=== PATIENT | male | born 1945 | race Caucasian/White ===

== ENCOUNTER → 2017-09-21 10:28 | Outpatient (CLI) | payer MEDICARE, SELFPAY ==
--- NOTE | 2017-09-21 10:47 | MR_ITS ---
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 FINDINGS: There is an area of abnormal signal intensity within the left frontal parietal junction which measures 4 cm transverse, 3.5 cm AP, and 4 cm cephalad to caudad. This is near CSF signal intensity hypointense on T1 and hyperintense on T2 with decreased FLAIR signal. This is likely related to an area of chronic infarction with developing septal malacia. There is some preservation however of the ribbon of cortex. This is without mass effect. There is some increased T2 signal within the white matter adjacent to this area suggesting some residual edema from the previous stroke. This is somewhat unusual in that the surrounding brain is not yet atrophic but may be related to the date of the infarction. Continued follow-up is recommended. This area does not demonstrate any significant enhancement. There may be some minimal cortical enhancement. No midline shift or mass effect evident. This is hypointense on diffusion and hyperintense on ADC images. Cerebellopontine angles, cerebellum, and brainstem are unremarkable. There is a partial empty sella. A small cystic area is present posterior to the pituitary and could represent a small pituitary cyst or sequela from the partial at the sella measuring 4 mm. There is generalized atrophy with scattered periventricular and subcortical T2 white matter hyperintensities consistent with ischemic gliotic change from microvascular disease. No enhancing lesions evident. No mass effect. No evidence of acute hemorrhage. IMPRESSION: 1. Abnormal signal intensity in the left frontal parietal area consistent with resolving infarction. Due to some atypical features, would recommend follow-up exam in 4-6 weeks to confirm further resolution with encephalomalacic changes. 2. 4 mm cystic area posterior aspect of the pituitary and may represent a small pituitary cyst. 3. Atrophy with chronic periventricular ischemic gliotic change
[2017-09-21 10:49] LABS: Blood Urea Nitrogen 12 mg/dL (7-18); Creatinine,Serum 1.07 mg/dL (0.70-1.30); Estimated Glomerular Filt Rate 68 ml/min (>60); GFR (African American) 83 ML/MIN (>60)
== END ==
PROVIDERS: Family Provider Family Medicine; PCP Family Medicine; Visit Provider Family Medicine
DX: I63.232 Cerebral infarction due to unspecified occlusion or stenosis of left carotid arteries (principal); I10 Essential (primary) hypertension; R47.01 Aphasia
CPT/HCPCS: 36415; 70553; 82565; 84520; A9576

== ENCOUNTER → 2018-04-26 10:32 | Outpatient (CLI) | payer MEDICARE, SELFPAY ==
--- NOTE | 2018-04-26 10:39 | XR_ITS ---
XR hip LT 2-3V w/pelvis HISTORY: Left hip pain ITS.REASON: LEFT HIP PAIN,OSTEOARTHRITIS ORDERING PHYSICIAN: Rodrigo Flores MD PATIENT AGE: 72 years COMPARISON: 04/25/2018 FINDINGS: There are moderate to severe osteoarthritic changes of the left hip with decrease in the hip joint space and osteosclerosis of the acetabulum with hypertrophic changes of the acetabulum. No fracture or dislocation. Bony spurring also present at the femoral head. Osteoarthritic changes are also present involving the right hip which are mild to moderate and degenerative changes are present in the lower lumbar spine. IMPRESSION: Moderate to severe osteoarthritis of left hip which has progressed compared to 09/30/2014
== END ==
PROVIDERS: PCP Family Medicine; Visit Provider Family Medicine
DX: M25.552 Pain in left hip (principal); M16.12 Unilateral primary osteoarthritis, left hip
CPT/HCPCS: 73502

== ENCOUNTER → 2018-05-21 12:49 | Outpatient (CLI) | payer MEDICARE, SELFPAY ==
--- NOTE | 2018-05-21 12:51 | IR_ITS ---
IR fluoro guided needle place CLINICAL INDICATION: ITS.REASON: Lt hip pain ORDERING PHYSICIAN: Pallavi Romero MD PATIENT AGE: 72 years Comparison: None Fluoroscopy time: 10 seconds Hip injection was performed by Dr. Romero. FINDINGS: 2 images submitted one of which shows a needle in place and the other without the needle. There is both intra and extra-articular contrast. Intra-articular contrast has a somewhat shaggy appearance. Please correlate with fluoroscopic findings. IMPRESSION: Status post left hip injection by Dr. Romero as described above
--- NOTE | 2018-05-23 20:12 | HMH.PROC ---
[facility] Procedure Note Procedure Note:: Date of Procedure: 05/21/2018 Pre-procedure diagnosis: L hip degenerative joint disease Post-procedure diagnosis: L hip degenerative joint disease Procedure: intraarticular corticosteroid injection L hip Performed by: Pallavi Romero MD Anesthesia: local; 10cc 1% lidocaine w/o epinephrine Estimated Blood Loss: none History of Present Illness: The patient is a 72 year-old male with degenerative joint disease of the L hip. He has never injured this hip nor had surgery in that location. He has tried oral analgesics and ice, but his pain is increasing in both frequency and severity. He uses a rolling walker at baseline, which is partially due to his hip, but also due to his history of prior AK/CVA (both occurred simultaneously 1.5 years ago). He has never had an injection in the hip, and would like to try this before considering surgical options. I discussed the procedure as well as the risks, including bleeding, neurovascular damage, infection, and the failure of the injection to improve his pain. The patient vocalized understanding and provided informed consent. Procedure Note: The patient presented to the radiology department and changed into a gown. Consent was reviewed and signed by both myself and the patient, all questions were answered. The patient was placed supine on the fluoroscopy table and the L hip exposed. The anterior groin/hip and proximal thigh were prepped with chlorhexidine. Timeout was performed. Next, the fluoro machine was brought in over the patient?s L hip and a picture taken to confirm adequate visualization of the joint. I donned a pair of sterile surgical gloves; the remainder of the procedure was performed in a sterile fashion. A 20G spinal needle was held over the hip to approximate my desired entry point on the skin. Once this was established, a 25G needle was used to infiltrate injection site and estimated needle track with 10cc 1% lidocaine w/o epinephrine. Once the injection site was anesthetized, the spinal needle was advanced through the same puncture site and deeper towards the hip joint. Using fluoro, it was confirmed that the needle was advanced until it was at the level of the femoral neck. The stylus was removed from the spinal needle and 2cc of iodinated contrast solution was injected through the spinal needle. Fluoro was taken again, and the dye confirmed intra-capsular placement of the spinal needle, indicating a successful intraarticular injection. The syringe with contrast was removed, keeping the spinal needle in place, and 40mg Kenalog with 2cc 1% lidocaine w/o epinephrine was injected through the needle into the hip joint. A final fluoro picture was taken, confirming successful intraarticular injection. The spinal needle was removed from the hip and a band-aid was placed over the injection site. Specimens: none Condition/Disposition: good / home Complications: none
--- NOTE | 2018-05-23 20:23 | P.PCN_ITS ---
[facility] Procedure Note Procedure Note:: Date of Procedure: 05/21/2018 Pre-procedure diagnosis: L hip degenerative joint disease Post-procedure diagnosis: L hip degenerative joint disease Procedure: intraarticular corticosteroid injection L hip Performed by: Pallavi Romero MD Anesthesia: local; 10cc 1% lidocaine w/o epinephrine Estimated Blood Loss: none History of Present Illness: The patient is a 72 year-old male with degenerative joint disease of the L hip. He has never injured this hip nor had surgery in that location. He has tried oral analgesics and ice, but his pain is increasing in both frequency and severity. He uses a rolling walker at baseline, which is partially due to his hip, but also due to his history of prior VT/CVA (both occurred simultaneously 1.5 years ago). He has never had an injection in the hip, and would like to try this before considering surgical options. I discussed the procedure as well as the risks, including bleeding, neurovascular damage, infection, and the failure of the injection to improve his pain. The patient vocalized understanding and provided informed consent. Procedure Note: The patient presented to the radiology department and changed into a gown. Consent was reviewed and signed by both myself and the patient, all questions w ere answered. The patient was placed supine on the fluoroscopy table and the L hip exposed. The anterior groin/hip and proximal thigh were prepped with chlorhexidine. Timeout was performed. Next, the fluoro machine was brought in over the patient?s L hip and a picture taken to confirm adequate visualization of the joint. I donned a pair of sterile surgical gloves; the remainder of the procedure was performed in a sterile fashion. A 20G spinal needle was held over the hip to approximate my desired entry point on the skin. Once this was established, a 25G needle was used to infiltrate injection site and estimated needle track with 10cc 1% lidocaine w/o epinephrine. Once the injection site was anesthetized, the spinal needle was advanced through the same puncture site and deeper towards the hip joint. Using fluoro, it was confirmed that the needle was advanced until it was at the level of the femoral neck. The stylus was removed from the spinal needle and 2cc of iodinated contrast solution was injected through the spinal needle. Fluoro was taken again, and the dye confirmed intra- capsular placement of the spinal needle, indicating a successful intraarticular injection. The syringe with contrast was removed, keeping the spinal needle in place, and 40mg Kenalog with 2cc 1% lidocaine w/o epinephrine was injected through the needle into the hip joint. A final fluoro picture was taken, confirming successful intraarticular injection. The spinal needle was removed from the hip and a band-aid was placed over the injection site. Specimens: none Condition/Disposition: good / home Complications: none
== END ==
PROVIDERS: PCP Family Medicine; Visit Provider Orthopaedic Surgery
DX: M16.12 Unilateral primary osteoarthritis, left hip (principal)
CPT/HCPCS: 20610; 77002; Q9967

== ENCOUNTER → 2019-01-10 07:52 | Outpatient (CLI) | payer MEDICARE, SELFPAY ==
--- NOTE | 2019-01-10 | CA_ITS ---
APPROVED REPORT Exam: Pharmacologic Technologist: cathy franco, Ht: 6 ft 2 in Wt: 268 lbs BSA: 2.46 m2 Indications: Pre-OP Medical History Medical History: HTN Medications: Metoprolol,,,,, Asa,,,,, Gabapentin,,,,, Losartan,,,,, Atorvastatin,,,,, CloPIdogrel,,,,, OmPERAZOLE,,,,, Allergies: codeine Cardiac Risk Factors: HTN Stress Test Details Test: LEXISCAN HR Resting HR: 57 bpm Max Heart Rate (APMHR): 149 bpm Max HR Achieved: 72 bpm Target HR (85% APMHR): 126 bpm % of APMHR: 48 Recovery HR: 62 bpm BP Resting BP: 162.0/78.0 mmHg Max BP: 164.0/78.0 mmHg Recovery BP: 164.0/78.0 mmHg ECG Resting EC DEGREE AVB,OLD SEPTAL SD Clinical Exercise duration: 04:02 min Highest Stage Achieved: Exercise capacity: 1.0 METs Stress ECG Conclusion DEVELOPED LIGHTHEADEDNESS AND CHEST PRESSURE ABOUT 5 MINUTES INTO RECOVERY. SYMPTOMS RESOLVED AFTER AMINOPHYLLINE 100 MG SLOW IV GIVEN ABOUT 10 MINUTES INTO RECOVERY. SOA AND MALAISE. CHEST DISCOMFORT AFTER TEST. NO ARRHYTHMIAS/ECTOPY. NO SIGNIFICANT ST-T CHANGES. UNREMARKABLE LEXISCAN STRESS. MYOVIEW IMAGES REPORTED SEPARATELY Test Summary REST 09:10 . . 57 . 162/ 78 . . Stage 1 01:00 . . 71 . . . . Stage 2 01:00 . . 69 . 136/ 76 . . Stage 3 01:00 . . 62 . 139/ 76 . . Stage 4 01:00 . . 62 . 157/ 77 . . Stage 4 01:02 . . 62 . 157/ 77 . Stop exercise at 04:02 RECOVERY 01:00 . . 61 . . . . RECOVERY 02:00 . . 62 . 164/ 78 . . RECOVERY 03:00 . . 61 . 164/ 78 . . RECOVERY 03:33 . . 59 . 145/ 79 . . Electronically signed by : Andre Dan, 01/10/2019 17:03:06
--- NOTE | 2019-01-10 07:54 | CA_ITS ---
APPROVED REPORT EXAM: Comprehensive 2D, Doppler, and color-flow Echocardiogram Loom Starter: Ana Schmitz RT(R) Ht: 6 ft 2 in Wt: 269lbs BSA: 2.47 BP: 138/65 mmHg Indications: Pre-Op Clearance, Shortness of Breath, CVA/TIA, Fatigue, CAD, Hyperlipidemia, Hypertension/HDD, history of [place], GERD Echo Enhancing Agent Indication: Endocardial border delineation Agent(s) / Amount(s) Used: Definity 1 cc 2D Dimensions IVSd 0.70 cm M: 0.6-1.2 LVEF (Visual) 38.70 % LVDd 4.30 cm M: 4.2 - 5.9 LVDs 3.50 cm M: 2.5 - 4.0 LVOT 2.00 cm (M/F) 1.5-2.5 M-Mode Dimensions LA Diam 3.60 cm (1.9-4.0) Ao Diam 3.50 cm (2.0-3.7) AV Cusp 2.90 cm (1.5-2.6) LV Diastology E/A Ratio 0.5 MED E' 3.31 (< 7 cm/sec) E'/MED E' Ratio 15.10 (>14) LAT E' 6.92 (<10 cm/sec) E/LAT E' Ratio 7.20 (>14) Mitral Valve MV E Max Jeffry. 49.90 (40-130 cm/s) MV A Velocity 92.80 (40-130 cm/s) E/A Ratio 0.50 Left Ventricle Left atrium is mildly enlarged, left ventricle is normal size, mild concentric left ventricular hypertrophy, visually estimated ejection fraction of 40%, with marked hypokinesis involving the distal septum and apical and anterior apical wall. There is no left ventricular thrombus seen, definitely contrast was utilized to delineate the endocardial surfaces. Grade 1 diastolic dysfunction seen with tissue Doppler evidence of raise left atrial pressure. Right Ventricle Right atrium and right ventricular normal size and contractility. Aortic Valve Aortic valve is minimally thickened and fibrosed, there is no aortic stenosis, or aortic insufficiency. Mitral Valve Mitral valve is grossly normal, there is mild mitral regurgitation. Tricuspid Valve Tricuspid valve is grossly normal, there is mild tricuspid regurgitation. Tricuspid regurgitation jet velocity is inadequate for calculation of the right ventricular systolic pressure. Pulmonic Valve Pulmonic valve is poorly visualized. Great Vessels Aortic root is normal size. Pericardium No significant pericardial effusion noted. Conclusion 1. Technically difficult study because of the patient's factor and poor acoustic windows. 2. Mildly enlarged left atrium, normal left ventricular size, mild concentric left ventricular hypertrophy, visually estimated ejection fraction 40% with multiple segmental wall motion abnormality described above, there is no left ventricular thrombus seen, grade 1 diastolic dysfunction seen with tissue Doppler evidence of raise left atrial pressure. Definitely contrast was utilized to delineate the endocardial surfaces. 3. Mild mitral and tricuspid regurgitation 4. No significant pericardial effusion noted. Electronically signed by : Andre Dan, 01/11/2019 15:46:00
--- NOTE | 2019-01-10 07:55 | CA_ITS ---
APPROVED REPORT Student Admissions Clerk: JAKE Laterality: Bilateral Indications: preop/hx of stroke BLANCA Doppler Spectral Velocity Analysis ECA (R) 92.70/ cm/s ECA (L) 83.30/ cm/s dICA (R) 50.70/16.40 cm/s dICA (L) 65.20/18.90 cm/s Aminta (R) 66.80/19.60 cm/s Aminta (L) 48.70/13.40 cm/s pICA (R) 50.30/18.90 cm/s pICA (L) 38.50/14.10 cm/s dCCA (R) 65.20/14.10 cm/s dCCA (L) 68.80/12.80 cm/s pCCA (R) 61.30/15.70 cm/s pCCA (L) 61.90/11.80 cm/s Vert (R) 40.90/ cm/s Vert (L) 94.30/ cm/s ICA/CCA 1.02 ICA/CCA 0.95 Conclusion Duplex evaluation demonstrates stenosis of the right proximal internal carotid artery in the range of 20-49% with PSV <140 cm/sec, EDV <100 cm/sec, and IC/CC Ratio <4.0.Duplex evaluation demonstrates stenosis of the left proximal internal carotid artery <20% with PSV <140 cm/sec, EDV <100 cm/sec, and IC/CC Ratio <4.0.Antegrade flow seen bilateral vertebral arteries. Electronically signed by : Alden Petty MD 01/10/2019 16:43:04
--- NOTE | 2019-01-10 14:14 | NM_ITS ---
APPROVED REPORT Exam: Nuclear Stress Test Indication: SOB, Pre-op, HTN, CAD, Hx of SC Patient Location: Outpatient Stress Tech: Clare Gutierrez [place] Tech:Candelaria Morris ALYSSATejas RT(R)(N) Ht: 6 ft 2 in Wt: 268 lbs BSA: 2.46 m2 HR: 58 bpm BP: 162/78 mmHg BMI: 34.4 History: SOB, Pre-op, HTN, CAD, Hx of SC Procedure: Patient received a 0.4 mg of intravenous Lexiscan, resting heart rate 58 bpm, resting blood pressure 162/78 mmHg, with Lexiscan maximum heart rate achived was 70 bpm which is Less than 85 % of the maximum predicted heart rate and blood pressure was 136/76 mmHg. With Lexiscan patient complained of chest pressure Electrocardiogram Resting electro cardiogram showed sinus rhythm, with Lexiscan there is less than 1.[address] segment depression noted from the baseline EKG. The EKG portion of the Lexiscan Myoview is nondiagnostic. Cardiac Stress and Resting SPECT Images: Cardiac Stress and Resting SPECT images were obtained using technetium 99m Myoview 32.8 mCi stress and 10.46 mCi at rest. Gated SPECT with analysis of segmental wall motion and calculation of ejection fraction also done cardiac stress and resting SPECT images show a fixed defect involving the anterior anterior apical, apex and anteroseptal wall and a fixed pattern suggestive of myocardial scarring with minimal yrn-infarct ischemia. Computer derived ejection fraction is 49% with marked hypokinesis involving the anterior, apex and anteroseptal wall. The right ventricle is normal size and contractility. Conclusion: 1. The EKG portion of the Lexiscan Myoview is nondiagnostic. 2. Scintigraphic evidence of myocardial scarring involving the anterior, anterior apical, apex and anteroseptal wall without significant yrn-infarct ischemia. Computer derived ejection fraction is 49% with segmental wall motion abnormality described above, right ventricle is normal size and contractility. 3. Abnormal Lexiscan Myoview study. Electronically signed by : Andre Dan, 01/10/2019 16:06:23
== END ==
PROVIDERS: PCP Family Medicine; Visit Provider Internal Medicine Cardiovascular Disease
DX: E78.5 Hyperlipidemia, unspecified (principal); I10 Essential (primary) hypertension; I25.10 Atherosclerotic heart disease of native coronary artery without angina pectoris; I25.2 Old myocardial infarction; I69.320 Aphasia following cerebral infarction; K21.9 Gastro-esophageal reflux disease without esophagitis; R06.00 Dyspnea, unspecified; Z01.810 Encounter for preprocedural cardiovascular examination; Z95.5 Presence of coronary angioplasty implant and graft; I65.23 Occlusion and stenosis of bilateral carotid arteries
CPT/HCPCS: 78452; 93017; 93306; 93880; A9502; J2785; Q9957

== ENCOUNTER 2019-02-05 12:44 | Outpatient (RCR) | payer MEDICARE, SELFPAY | END 2019-02-05 12:50 | disposition home or self-care (01) | LOC: PT 12:44 | PROVIDERS: Visit Provider Internal Medicine | DX: Z95.5 Presence of coronary angioplasty implant and graft (principal) | CPT/HCPCS: 93798 ==

== ENCOUNTER → 2019-02-25 12:54 | Outpatient (CLI) | payer MEDICARE, SELFPAY ==
--- NOTE | 2019-02-25 12:57 | IR_ITS ---
PROCEDURE: IR FLUORO GUIDED NEEDLE PLACE CLINICAL INDICATION: left hip injection COMPARISON: HIPCMLT XR hip LT 2-3V w/pelvis from 04/26/2018 FINDINGS: Two images submitted with the C-arm shows needle in place at the mid femoral neck region with contrast injected into the soft tissues. There also appears to be some contrast in the hip joint medially. Exam is performed by Dr. Romero. Please see her op notes for further description IMPRESSION: Status post left hip injection Dictated by: Alden Petty MD 02/25/2019 17:37 Electronically signed by Alden Petty MD in [place] 02/25/2019 17:37
--- NOTE | 2019-02-25 22:08 | HMH.PROC ---
[facility] Procedure Note Procedure Note:: Date of Procedure: 02/25/2019 Pre-procedure diagnosis: L hip DJD Post-procedure diagnosis: L hip DJD Procedure: intraarticular corticosteroid injection L hip Performed by: Pallavi Romero MD Analysis Consultant/s: none Anesthesia: local; 3cc 1% lidocaine w/o epinephrine Estimated Blood Loss: none Procedure Note: The patient presented to the radiology department and changed into a gown, exposing the L hip. Consent was reviewed and signed by both myself and the patient, all questions were answered. The patient was placed supine on the fluoroscopy table and the L hip exposed. The anterior groin/hip and proximal thigh were prepped with chlorhexidine. Timeout was performed. Next, the fluoro machine was brought in over the patient?s hip and a picture taken to confirm adequate visualization of the joint. I donned a pair of sterile surgical gloves; the remainder of the procedure was performed in a sterile fashion. A 20G spinal needle was held over the hip to approximate my desired entry point on the skin. Once this was established, a 25G needle was used to infiltrate injection site and estimated needle track with 3cc 1% lidocaine w/o epinephrine. Once the injection site was anesthetized, the spinal needle was advanced through the same puncture site and deeper towards the hip joint. Using fluoro, it was confirmed that the needle was advanced until it was at the level of the femoral neck. The stylus was removed from the spinal needle and 2cc of iodinated contrast solution was injected through the spinal needle. Fluoro was taken again, and the dye confirmed intra-capsular placement of the spinal needle, indicating a successful intraarticular injection. The syringe with contrast was removed, keeping the spinal needle in place, and 40mg Kenalog with 2cc 1% lidocaine w/o epinephrine was injected through the needle into the hip joint. A final fluoro picture was taken, confirming successful intraarticular injection. The spinal needle was removed from the hip and a band-aid was placed over the injection site. Specimens: none Condition/Disposition: good / home Complications: none
== END ==
PROVIDERS: PCP Family Medicine; Visit Provider Orthopaedic Surgery
DX: M16.12 Unilateral primary osteoarthritis, left hip (principal)
CPT/HCPCS: 20610; 77002; Q9967

== ENCOUNTER → 2019-03-25 14:19 | Outpatient (CLI) | payer MEDICARE, SELFPAY ==
[2019-03-25 15:48] LABS: Alanine Aminotransferase 26 U/L (12-78); Albumin Level 3.4 gm/dL (3.4-5.0); Alkaline Phosphatase 107 U/L (46-116); Anion Gap 15.6 mEq/L (5-15); Aspartate Amino Transferase 15 U/L (15-37); Bilirubin,Direct 0.2 mg/dL (0.0-0.2); Bilirubin,Indirect 0.3 mg/dL (0.0-0.9); Bilirubin,Total 0.5 mg/dL (0.2-1.0); Blood Urea Nitrogen 16 mg/dL (7-18); Calcium 8.9 mg/dL (8.5-10.1); Carbon Dioxide 23 mmol/L (21.0-32.0); Chloride 103 mmol/L (98-107); Chol/HDL Ratio 1.9 (1-3.5); Cholesterol 93 mg/dL (140-200); Estimated Glomerular Filt Rate 60 ml/min (>60); GFR (African American) 72 ML/MIN (>60); Glucose 86 mg/dL (74-106); HDL Cholesterol 50 mg/dL (27-67); LDL Cholesterol 25 mg/dL (0-130); Potassium 4.6 mmoL/L (3.5-5.1); Sodium 137 mmol/L (136-145); Total Protein,Serum 6.9 gm/dL (6.4-8.2); Triglycerides 89 mg/dL (30-200); VLDL Cholesterol 18 mg/dL (0-40)
== END ==
PROVIDERS: PCP Family Medicine; Visit Provider Urology
DX: E78.2 Mixed hyperlipidemia (principal); I10 Essential (primary) hypertension; I25.10 Atherosclerotic heart disease of native coronary artery without angina pectoris; I25.2 Old myocardial infarction; I65.23 Occlusion and stenosis of bilateral carotid arteries; I69.320 Aphasia following cerebral infarction; K21.9 Gastro-esophageal reflux disease without esophagitis; R06.02 Shortness of breath; Z95.5 Presence of coronary angioplasty implant and graft
CPT/HCPCS: 36415; 80048; 80061; 80076

== ENCOUNTER 2020-09-15 16:12 | Emergency (ER) | payer MEDICARE, SELFPAY ==
--- NOTE | 2020-09-15 16:21 | XR_ITS ---
PROCEDURE INFORMATION: Exam: XR Right Knee Exam date and time: 09/15/2020 4:21 PM Age: 75 years old Clinical indication: Injury or trauma; Other: Ladle Pourer fell on knee; Blunt trauma; Right; Additional info: Dropped paint grinder on knee TECHNIQUE: Imaging protocol: XR Right knee. Views: 3 views. COMPARISON: No relevant prior studies available. FINDINGS: Bones/joints: There are mild degenerative changes of the knee joint, predominantly involving the medial joint compartment. There is no evidence of acute fracture. There is no evidence of joint malalignment or dislocation. Chondrocalcinosis is present. Soft tissues: Normal. IMPRESSION: 1. There are mild degenerative changes of the knee joint, predominantly involving the medial joint compartment. 2. No evidence of acute fracture. 3. No evidence of acute dislocation. 4. Chondrocalcinosis is present.
[2020-09-15 16:24] VITALS: BP 155/110; PULSE 86; RESP 16; TEMP 36.8; O2SAT 98; BMI 34.7
--- NOTE | 2020-09-15 16:26 | HMH.EDGENADL ---
ED Disposition Clinical Impression: Laceration of left lower extremity Qualifiers: Encounter type: initial encounter Qualified Code(s): S81.812A - Laceration without foreign body, left lower leg, initial encounter Disposition: Home, Self-Care Condition on Discharge: Good Instructions: DI for Laceration Repair Additional Instructions: Keflex as prescribed. [place] as needed for pain. Knee immobilizer. Additional instructions for LACERATION: Clean the wound daily with soap and water. You may shower. Apply a thin film of antibiotic ointment such as neosporin or triple antibiotic after showering and apply a bandage. Avoid submerging the wound, no swimming. See your primary care physician or return to the [facility] in 10 days for suture removal. The [facility] is open 9AM to 9 PM, 7 days a week. Return if any signs of infection including increasing pain, pus drainage, swelling, redness, red streaks, or fever. Additional instructions for CONTROLLED SUBSTANCES: You have been prescribed a medication that is a controlled substance. Controlled substances include pain medications known as opiates and sedative nerve medications known as benzodiazepines. Tramadol, fioricet, and gabapentin are also controlled substances. Some common opiates include: Codeine (such as Tylenol #3) Hydrocodone (Vicodin, Lortab, Lorcet, [place]) Oxycodone (Percocet, Percodan, Oxycodone, Oxy IR) Some common benzodiazepines include: Diazepam (Valium) Lorazepam (Ativan) Alprazolam (Xanax) Clonazepam (Klonopin) Oxazepam (Serax) All of these controlled substances are highly addictive and frequently abused. Misuse can and frequently does lead to addiction as well as overdose and . Medication should be stored in a locked cabinet or other secure storage unit. Do not store the medication in a motor vehicle. Short term supplies, 3 days or less, are prescribed because of the highly addictive nature of the medication. Any of the controlled substance medication NOT taken should be disposed of properly and NOT SAVED. The recommended method of disposing of unused medications is: Place the medicines in a sealable plastic bag. If the medicine is a solid, crush it or add water to dissolve it. Add something undesirable (cat litter, coffee grounds, etc.) Dispose of sealed bag in household trash Do not flush or pour unused medicines down a sink or drain. Controlled substances should not be shared, given away or sold. Because of the addictive nature and frequent abuse, these medications are sometimes stolen. These medications should be kept in a safe place where they cannot be stolen. Do not keep them in your car or purse. Lost or stolen prescriptions for controlled substances WILL NOT BE REFILLED in this emergency department, regardless of whether a police report was filed. Prescriptions: Hydrocod/Acet 5/325 mg [[place] 5/325mg tablet] 1 tab PO Q6HP PRN #10 tab PRN Reason: Pain Transmission Status: Received by [id number] cephALEXin [cephALEXin 500mg capsule*] 500 mg PO Q6H #28 cap Transmission Status: Received by [id number] Referrals: Rodrigo Flores MD [Primary Care Provider] - - Critical Care Critical Care Time: No Attestation: On , the high probability of a clinically significant, sudden or life threatening deterioration of the following system(s) required my full and direct attention, intervention and personal management. The time I documented below is in addition to time spent performing reported procedures but includes the following listed in this critical care notation. Medical Decision Making - Omer Inquiry Pt receiving controlled substance: Yes Omer was queried for this patient: Yes Risks and benefits of using a controlled substance: were discussed with pt by me Vital Signs: 09/15/20 16:24 Temperature 98.3 F Temperature Source Oral Pulse Rate [Right] 86 Respir
--- NOTE | 2020-09-15 16:43 | PC.NURSE ---
Pressure held on wound, wound bandaged at this itme
[2020-09-15 18:16] VITALS: BP 154/74; PULSE 74; RESP 16; TEMP 36.8; O2SAT 98
== END 2020-09-15 18:17 | disposition home or self-care (01) ==
PROVIDERS: Emergency Provider Emergency Medicine; PCP Family Medicine
DX: S81.811A Laceration without foreign body, right lower leg, initial encounter (principal); W31.89XA Contact with other specified machinery, initial encounter; Z23 Encounter for immunization; Y92.79 Other farm location as the place of occurrence of the external cause; I25.10 Atherosclerotic heart disease of native coronary artery without angina pectoris; I25.2 Old myocardial infarction; K21.9 Gastro-esophageal reflux disease without esophagitis; I10 Essential (primary) hypertension; Z87.891 Personal history of nicotine dependence; I69.920 Aphasia following unspecified cerebrovascular disease; E78.5 Hyperlipidemia, unspecified
CPT/HCPCS: 12032; 29505; 73562; 99283

== ENCOUNTER 2020-09-17 22:18 | Observation (INO) | payer MEDICARE, SELFPAY ==
[2020-09-17 22:30] VITALS: BP 118/75; PULSE 78; RESP 19; O2SAT 98; BMI 32.5
--- NOTE | 2020-09-17 22:54 | CT_ITS ---
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 Exam focused on the knee. Radiation optimization: All CT scans at this facility use at least one of these dose optimization techniques: automated exposure control; mA and/or kV adjustment per patient size (includes targeted exams where dose is matched to clinical indication); or iterative reconstruction. Contrast material: ISOVUE; Contrast volume: 120 ml; Contrast route: IV; COMPARISON: CR XR KNEE RT 3V 09/15/2020 4:41 PM FINDINGS: Bones/joints: Normal. No acute fracture or dislocation. Soft tissues: Mild soft tissue swelling in the periarticular region about the knee but no evidence for abscess or foreign body. IMPRESSION: Mild cellulitis about the knee but no soft tissue gas or fluid collection.
--- NOTE | 2020-09-17 23:29 | HMH.EDLOEX ---
ED Disposition Clinical Impression: Cellulitis Qualifiers: Site of cellulitis: extremity Site of cellulitis of extremity: lower extremity Laterality: right Qualified Code(s): L03.115 - Cellulitis of right lower limb Disposition: Admitted as Observation Condition on Discharge: Good Referrals: Rodrigo Flores MD [Primary Care Provider] - - Critical Care Critical Care Time: No Attestation: On 09/17/20, the high probability of a clinically significant, sudden or life threatening deterioration of the following system(s) required my full and direct attention, intervention and personal management. The time I documented below is in addition to time spent performing reported procedures but includes the following listed in this critical care notation. Medical Decision Making - Medical Records Medical records reviewed: Yes: I reviewed the patient's medical records. - Omer Inquiry Pt receiving controlled substance: No Vital Signs: 09/17/20 22:30 09/17/20 23:31 09/18/20 00:00 Pulse Rate 83 64 Pulse Rate [Right] 78 Respiratory Rate 19 Blood Pressure 108/89 L 124/68 Blood Pressure [Right Arm] 118/75 Blood Pressure Mean 90 Blood Pressure Mean [Right Arm] 89 Blood Pressure Source [Right Arm] Automatic Cuff 02 Sat by Pulse Oximetry 98 94 L 96 Oxygen Delivery Method Room Air 09/18/20 01:27 Pulse Rate 65 Pulse Rate [Right] Respiratory Rate Blood Pressure 147/91 H Blood Pressure [Right Arm] Blood Pressure Mean Blood Pressure Mean [Right Arm] Blood Pressure Source [Right Arm] 02 Sat by Pulse Oximetry 96 Oxygen Delivery Method - Lab Data Lab results reviewed: Yes: I reviewed the patient's lab results. Lab Results 09/17/20 23:21: WBC 10.3, RBC 4.69, Hgb 13.1 L, Hct 41.2 L, MCV 87.8, MCH 28.0, MCHC 31.9, RDW 13.8, Plt Count 381, MPV 6.7 L, Neut % (Auto) 64.4, Lymph % (Auto) 23.8, [place] % (Auto) 6.6, Eos % (Auto) 4.7, Baso % (Auto) 0.4, Neut # (Auto) 6.7, Lymph # (Auto) 2.5, [place] # (Auto) 0.7, Eos # (Auto) 0.5 H, Baso # (Auto) 0.0, ESR 64 H 09/17/20 23:21: Sodium 134 L, Potassium 4.6, Chloride 104, Carbon Dioxide 23, Anion Gap 11.6, BUN 14, Creatinine 1.10, Estimated Creat Clear 92, Estimated GFR 66, Est GFR ( Amer) 79, Glucose 175 H, Calcium 8.9, Total Bilirubin 0.6, AST 32, ALT 38, Alkaline Phosphatase 113, Troponin I < 0.01, C-Reactive Protein 37.1 H, Total Protein 7.7, Albumin 4.1, Globulin 3.6 H, Albumin/Globulin Ratio 1.1, Procalcitonin 0.142 09/17/20 23:21: Lactate 1.2 09/17/20 23:42: Urine Color Yellow, Urine Appearance Clear, Urine pH 6.0, Ur Specific [place] 1.010, Urine Protein Negative, Urine Glucose (UA) Negative, Urine Ketones Negative, Urine Blood Negative, Urine Nitrate Negative, Urine Bilirubin Negative, Urine Urobilinogen 0.2, Ur Leukocyte Esterase Negative, Urine WBC Occasional, Ur Squamous Epith Cells 3-5, Urine Bacteria Trace Result diagrams: 09/17/20 23:21 09/17/20 23:21 Orders (Tests/Meds): ED MEDICATIONS Generic Name Dose Route Start Last Admin Trade Name Freq PRN Reason Stop Dose Admin Sodium Chloride 1,000 mls @ 999 mls/hr 09/17/20 23:45 09/17/20 23:46 Sod Chlor 0.9% 1000ml Bag IV 09/18/20 00:45 999 mls/hr .Q1H1M MIESHA Administration Vancomycin HCl 1,500 mg/ 250 mls @ 125 mls/hr 09/18/20 01:36 Sodium Chloride IV 09/18/20 03:35 ONCE ONE Protocol Miscellaneous 1 each 09/18/20 01:45 Vancomycin Consult Request * 10/18/20 01:44 CONSULT PHARMACY MIESHA Discontinued Medications Generic Name Dose Route Start Last Admin Trade Name Freq PRN Reason Stop Dose Admin Iopamidol 120 ml 09/18/20 00:54 09/18/20 00:55 Iopamidol-370 (76%);100ml Bottle IV 09/18/20 00:55 120 ml ONCE ONE Administration Ketorolac Tromethamine 30 mg 09/17/20 23:45 09/17/20 23:45 Ketorolac 30mg/Ml Vial IV 09/17/20 23:46 30 mg ONCE ONE Administration Morphine Sulfate 4 mg 09/18/20 01:35 09/18/20 01:37 Morphine 4mg/Ml Syringe IV
[2020-09-17 23:31] VITALS: BP 108/89; PULSE 83; O2SAT 94
--- NOTE | 2020-09-17 23:31 | XR_ITS ---
PROCEDURE INFORMATION: Exam: XR Right Hip Exam date and time: 09/17/2020 11:31 PM Age: 75 years old Clinical indication: Injury or trauma; Fall; Blunt trauma (contusions or hematomas); Right; Hip; Additional info: Pain TECHNIQUE: Imaging protocol: XR Right hip. Views: 2 or 3 views hip with pelvis when performed. COMPARISON: No relevant prior studies available. FINDINGS: Bones/joints: Degenerative changes involving bilateral hips worse on the left. No dislocation. No femoral head flattening or AVN. No acute fracture. Soft tissues: Unremarkable. IMPRESSION: No acute findings.
[2020-09-17 23:40] LABS: Basophils % 0.4 % (0.1-2.0); Eosinophils # 0.5 K/mm3 (0.0-0.4); Eosinophils % 4.7 % (0.1-12.0); Hematocrit 41.2 % (42.0-52.0); Hemoglobin 13.1 g/dL (14.1-18.0); Lymphocytes # 2.5 K/mm3 (0.7-4.5); Lymphocytes % 23.8 % (10-50); Mean Corpuscular HGB Conc 31.9 g/dL (31.8-35.4); Mean Corpuscular Volume 87.8 fl (80-94); Mean Platelet Volume 6.7 fl (7.4-10.4); Monocytes # 0.7 K/mm3 (0.1-1.0); Monocytes % 6.6 % (1.7-9.3); Neutrophils # 6.7 K/mm3 (1.8-7.8); Neutrophils % 64.4 % (37.0-80.0); Platelet Count 381 K/mm3 (142-424); Red Blood Count 4.69 M/mm3 (4.60-6.20); Red Cell Distribution Width 13.8 % (11.5-17.5); White Blood Count 10.3 K/mm3 (4.8-10.8)
[2020-09-17 23:43] LABS: Alanine Aminotransferase 38 U/L (12-78); Albumin Level 4.1 g/dl (3.5-5.0); Albumin/Globulin Ratio 1.1 (1.1-1.8); Alkaline Phosphatase 113 U/L (38-126); Anion Gap 11.6 mEq/L (5-15); Aspartate Amino Transferase 32 U/L (17-59); Bilirubin,Total 0.6 mg/dl (0.2-1.3); Blood Urea Nitrogen 14 mg/dl (9-20); Calcium 8.9 mg/dl (8.4-10.2); Carbon Dioxide 23 mmol/L (22.0-30.0); Chloride 104 mmol/L (98-107); Creatinine Clearance Estimated 92 mL/min (50-200); Estimated Glomerular Filt Rate 66 ml/min (>60); GFR (African American) 79 ML/MIN (>60); Globulin 3.6 g/dL (1.3-3.2); Glucose 175 mg/dl (74-100); Potassium 4.6 mmoL/L (3.5-5.1); Sodium 134 mmol/L (136-145); Total Protein,Serum 7.7 g/dl (6.3-8.2)
[2020-09-17 23:47] LABS: Microscopic, Urine URINE MICROSCOPIC (MICROSCOPIC)
[2020-09-17 23:48] LABS: C-Reactive Protein 37.1 mg/L (0-4)
[2020-09-17 23:48] LABS: Appearance,Urine CLEAR (Clear); Bilirubin,Urine Negative (Negative); Blood, Urine Negative (Negative); Color,Urine YELLOW (Yellow); Glucose,Urine (UA) Negative (Negative); Ketones,Urine Negative (Negative); Leukocyte Esterase,Urine Negative (Negative); Nitrate,Urine Negative (Negative); Protein,Urine Negative (Negative); Urobilinogen,Urine 0.2 EU/dl (0.2)
[2020-09-17 23:58] LABS: Troponin I < 0.01 ng/ml (0.00-0.034)
[2020-09-18] VITALS (10 sets, daily range): BP systolic 103–180; BP diastolic 52–91; PULSE 63–95; RESP 16–20; TEMP 36.5–36.8; O2SAT 90–98; BMI 37.3
[2020-09-18 00:02] LABS: Procalcitonin 0.142 ng/mL (0.0-2.0)
--- NOTE | 2020-09-18 00:04 | PC.NURSE ---
pt gone to radiology.
[2020-09-18 00:06] LABS: Lactic Acid 1.2 mmol/L (0.7-2.1)
[2020-09-18 00:10] LABS: Erythrocyte Sedimentation Rate 64 mm/hr (0-20)
[2020-09-18 00:25] LABS: Bacteria,Urine Trace /lpf; WBC,Urine Occasional #/hpf (0-3)
--- NOTE | 2020-09-18 01:46 | PC.NURSE ---
Called [facility] for Vancomycin dosing, s/w Ambika, and was given 1,500mg for loading dose.
--- NOTE | 2020-09-18 01:57 | PC.NURSE ---
Dr. Mccormick s/w Dr. Sams for admission
--- NOTE | 2020-09-18 02:02 | PC.NURSE ---
supervisor carton and can supply notified for bed assignment, need for admission
--- NOTE | 2020-09-18 02:03 | PC.NURSE ---
Per Dr. Mccormick, was told to contact [facility] back regarding Vanc dosing as it appeared low to him. He was requesting the 20mg/kg dose. S/W Ambika again and was given a new loading dose of 2,000mg.
--- NOTE | 2020-09-18 02:47 | PC.NURSE ---
PT ARRIVED TO FLOOR VIA STRETCHER FROM ED W/STAFF AT [id number]
--- NOTE | 2020-09-18 03:32 | PC.WOUNDNOTE ---
INCISION TO R KNEE PRESENT. APRX 4 INCHES. STICHES PRESENT, CDI. AREA AROUND REDDENED AND WARM. +2 PITTING EDEMA TO RLE.
--- NOTE | 2020-09-18 03:44 | PC.NURSE ---
A&OX4. PT TOLERATING RA WELL. PT HAS HAD PREVIOUS STROKE. PT HAS ISSUES COMMUNICATING, HAS TROUBLE FINDING WORDS. CAN ANSWER YES/NO, SOMETIMES GETS THESE BACKWARDS. INCISION PRESENT TO R KNEE, NOTED IN PREVIOUS WOUND NOTE. PT HAS HAD NO C/O PAIN FROM KNEE THUS FAR. RECEIVING VANC AT THIS TIME. PT DAUGHTER AT BEDSIDE AND WAS ABLE TO HELP WITH ADMISSION PROCESS. PT X1 ASSIST IN ROOM, HAS BEEN IN BED RESTING SINCE ADMISSION. VSS WILL CONTINUE TO MONITOR.
[2020-09-18 06:48] LABS: Basophils % 0.5 % (0.1-2.0); Eosinophils # 0.3 K/mm3 (0.0-0.4); Eosinophils % 4.3 % (0.1-12.0); Hematocrit 38.6 % (42.0-52.0); Hemoglobin 12.8 g/dL (14.1-18.0); Lymphocytes # 2.5 K/mm3 (0.7-4.5); Lymphocytes % 34.2 % (10-50); Mean Corpuscular HGB Conc 33.1 g/dL (31.8-35.4); Mean Corpuscular Hemoglobin 28.7 pg (27.0-31.2); Mean Corpuscular Volume 86.9 fl (80-94); Mean Platelet Volume 6.9 fl (7.4-10.4); Monocytes # 0.2 K/mm3 (0.1-1.0); Monocytes % 2.3 % (1.7-9.3); Neutrophils # 4.3 K/mm3 (1.8-7.8); Neutrophils % 58.7 % (37.0-80.0); Platelet Count 346 K/mm3 (142-424); Red Blood Count 4.44 M/mm3 (4.60-6.20); Red Cell Distribution Width 14.3 % (11.5-17.5); White Blood Count 7.3 K/mm3 (4.8-10.8)
[2020-09-18 06:57] LABS: Anion Gap 10.2 mEq/L (5-15); Blood Urea Nitrogen 15 mg/dl (9-20); Calcium 8.5 mg/dl (8.4-10.2); Carbon Dioxide 25 mmol/L (22.0-30.0); Chloride 105 mmol/L (98-107); Creatinine Clearance Estimated 106 mL/min (50-200); Estimated Glomerular Filt Rate 66 ml/min (>60); GFR (African American) 79 ML/MIN (>60); Glucose 148 mg/dl (74-100); Potassium 4.2 mmoL/L (3.5-5.1); Sodium 136 mmol/L (136-145)
--- NOTE | 2020-09-18 07:00 | CA_ITS ---
APPROVED REPORT Right Lower Extremity Venous Study for DVT. Price Lister: YUE EscaleraT Indications Lower Extremity Pain: Right Lower Extremity Edema: Right swelling-immobility,PT CUT KNEE 2 DAYS AGO WITH PAYABLE REPRESENTATIVE HAS STITICHES IN THAT AREA,CELLULITIS Risk Factors Cardiac Disease Trauma Obesity CAD Medications Plavix Vein Imaging CFV (R): compressive, spontaneous, phasic, augmentation FEM (R): compressive, spontaneous, phasic, augmentation POP (R): compressive, spontaneous, phasic, augmentation PTV (R): Compressible GSV (R): Compressible Peroneals (R):Compressible GAS (R): Compressible Findings Study suggests no evidence of DVT of the right lower extremity. Study suggests no evidence of SVT of the right lower extremity. Conclusion Study suggests no evidence of DVT of the right lower extremity. Study suggests no evidence of SVT of the right lower extremity. Electronically signed by : Alden Petty MD 09/22/2020 17:55:52
--- NOTE | 2020-09-18 07:02 | HMH.HP ---
*Admission Date: 09/17/20 *Chief complaint: Right leg pain *History of present illness: 75-year-old male presented to the emergency department with right leg pain. Leg pain was most intense at the knee joint but ascended up into the hip as well as down to the mid calf. Pain is constant. Patient did not get relief from pain at home with use of ice packs or compression. 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 Laceration was repaired at that ER visit. Patient has not had fevers. This morning pain may be slightly improved. In the ER patient underwent evaluation. He had a normal white blood cell count. CT scan did not reveal deeper infection. Patient was admitted on vancomycin. Patient also has complaints of a stabbing left pectoral pain that is now been present for 1 year. Patient saw cardiology in January 2020 where echocardiogram and Lexiscan Myoview were arranged but patient did not have these tests. [facility] History I have reviewed the patient's past medical history: Yes Medical History: Reports:: Coronary Artery Disease, Cerebrovascular Accident, Gastroesophageal Reflux Disease(GERD), Hyperlipidemia, Hypertension, Myocardial Infarction Denies:: Cancer, Diabetes Mellitus Type 1, Diabetes Mellitus Type 2, Internal Pacemaker, MRSA, Seizures *Have you ever received a pneumonia vaccine?: Yes *Have you received a flu vaccine this season?: Yes Laterality Cases: Bilateral: Other Other Surgeries: Yes: Cancer Surgery, Cardiac Catheterization, Cholecystectomy, Coronary Stent, Other. No: Pacemaker Amputation: No Fractures: No - *Social History Smoking Status: Former smoker Tobacco Type: cigarettes #Yrs smoked (if former smoker): 47 Alcohol Intake: never Substance Use Type: denies use *Occupational Status:: retired Housing: house Household Members: spouse *Travel in the last 8 weeks: None Family Hx:: Cancer Review of Systems - Constitutional Denies anorexia, Denies body ache(s) - Eyes Denies blurry vision - ENT Denies difficulty swallowing - *Cardiovascular Reports chest pain, Reports chest pain at rest, Denies shortness of breath with activity, Denies generalized swelling, Denies irregular heart rhythm - *Respiratory Denies change in phlegm color, Denies chest congestion - *Gastrointestinal Denies abdominal pain - *Genitourinary Denies difficulty urinating - *Musculoskeletal Reports abnormal walking, Reports joint pain (Left hip joint) - Integumentary/Breasts Denies hair loss, Denies bleeding lesions, Denies unusual bruising - *Neurologic Reports abnormal walking (Ambulates with a cane), Denies localized weakness - Psychiatric Denies abnormal sleep pattern - Endocrine Denies cold intolerance - Hematologic/Lymphatic Denies easy bruising Meds Home Medications Medication Instructions Recorded Confirmed Type Atorvastatin Calcium [Atorvastatin 40 mg PO HS 07/22/18 09/17/20 History 40mg Tab] Clopidogrel Bisulfate [Plavix 75mg 75 mg PO DAILY 07/22/18 09/17/20 History Tab] Gabapentin [Gabapentin 300mg Cap] 300 mg PO TID 07/22/18 09/17/20 History Metoprolol Tartrate [Lopressor 25 mg PO BID 07/22/18 09/17/20 History 25mg tablet] aspirin 81 mg tablet,delayed 81 mg PO DAILY 12/14/18 09/17/20 History release nitroglycerin 0.4 mg sublingual 0.4 mg SUBLINGUAL Q5-15M PRN 12/14/18 09/17/20 History tablet omeprazole 40 mg capsule,delayed 20 mg PO DAILY cap 01/03/19 09/17/20 History release Hydrocod/Acet 5/325 mg [[place] 1 tab PO Q6HP PRN #10 tab 09/15/20 09/17/20 Rx 5/325mg tablet] Losartan Potassium [Cozaar 100mg 100 mg PO DAILY 09/17/20 09/17/20 History Tablets] cephALEXin [cephALEXin 500mg 500 mg PO Q6H 09/17/20 09/17/20 History capsule*] Allergies Allergy/AdvReac Type Severity Reaction Status Date / Time codeine AdvReac Nausea Verifi
--- NOTE | 2020-09-18 07:17 | CA_ITS ---
APPROVED REPORT EXAM: Comprehensive 2D, Doppler, and color-flow Echocardiogram Gate Keeper: Ana Schmitz RT(R) Ht: 6 ft 0 in Wt: 275lbs BSA: 2.44 BP: 135/84 mmHg Indications: CP, CAD, SOB Echo Enhancing Agent Indication: Endocardial border delineation Agent(s) / Amount(s) Used: Definity 2 cc 2D Dimensions LVOT 2.10 cm (M/F) 1.5-2.5 M-Mode Dimensions RVDd 2.12 cm (0.9-2.6) LA Diam 3.71 cm (1.9-4.0) LVDd 4.46 cm (3.5-5.7) Ao Diam 4.09 cm (2.0-3.7) LVDs 3.10 cm (3.5-5.7) IVSd 1.02 cm (0.6-1.1) PWd 0.68 cm (0.6-1.1) EF (Teich) 58.10% FS 30.50% EDV (Teich) 90.50 mL ESV (Teich) 37.90 mL Left Ventricle Technically difficult study because of the patient factors and poor acoustic windows. Left atrium is mildly enlarged, left ventricle is normal size, mild concentric left ventricular hypertrophy, visually estimated ejection fraction 55% with no regional wall motion abnormality, Definity contrast was utilized to delineate the endocardial surfaces. Diastolic parameters are inconclusive. Right Ventricle Right atrium and right ventricle are normal size and contractility. Aortic Valve Aortic valve is minimally thickened and fibrosed, there is no aortic stenosis or aortic insufficiency. Mitral Valve Mitral valve leaflets are minimally thickened, there is mild mitral regurgitation. Tricuspid Valve Tricuspid grossly normal, there is mild tricuspid regurgitation, tricuspid regurgitation jet velocity is inadequate for calculation of the right ventricular systolic pressure. Pulmonic Valve Pulmonic valve is poorly visualized. Great Vessels Aortic root is normal size. Pericardium No significant pericardial effusion noted. Conclusion 1. Technically difficult study due to patient factors and poor acoustic windows, Definity contrast was diastole limited endocardial surfaces. 2. Normal left ventricular size, mild concentric left ventricular hypertrophy, visually estimated ejection fraction 55% with no regional wall motion abnormality, diastolic parameters are inconclusive, there is no left ventricular thrombus seen. 3. Mild mitral and tricuspid regurgitation. 4. No significant pericardial effusion noted. Electronically signed by : Andre Dan, 09/18/2020 14:33:38
--- NOTE | 2020-09-18 07:51 | HMH.PHACONS ---
- Pharmacy Consult Date: 09/18/20 Time: 07:52 Referring provider: DR. CHUNG Reason for Consult:: VANCOMYCIN DOSING Allergies and ADEs:: Allergies Allergy/AdvReac Type Severity Reaction Status Date / Time codeine AdvReac Nausea Verified 02/04/20 08:50 Home Medications:: Home Medications Medication Instructions Recorded Confirmed Type Atorvastatin Calcium [Atorvastatin 40 mg PO HS 07/22/18 09/17/20 History 40mg Tab] Clopidogrel Bisulfate [Plavix 75mg 75 mg PO DAILY 07/22/18 09/17/20 History Tab] Gabapentin [Gabapentin 300mg Cap] 300 mg PO TID 07/22/18 09/17/20 History Metoprolol Tartrate [Lopressor 25 mg PO BID 07/22/18 09/17/20 History 25mg tablet] aspirin 81 mg tablet,delayed 81 mg PO DAILY 12/14/18 09/17/20 History release nitroglycerin 0.4 mg sublingual 0.4 mg SUBLINGUAL Q5-15M PRN 12/14/18 09/17/20 History tablet omeprazole 40 mg capsule,delayed 20 mg PO DAILY cap 01/03/19 09/17/20 History release Hydrocod/Acet 5/325 mg [[place] 1 tab PO Q6HP PRN #10 tab 09/15/20 09/17/20 Rx 5/325mg tablet] Losartan Potassium [Cozaar 100mg 100 mg PO DAILY 09/17/20 09/17/20 History Tablets] cephALEXin [cephALEXin 500mg 500 mg PO Q6H 09/17/20 09/17/20 History capsule*] Height: 1.83 m Weight: 124.965 kg Laboratory Results:: Laboratory Results - last 24 hr 09/17/20 23:21: WBC 10.3, RBC 4.69, Hgb 13.1 L, Hct 41.2 L, MCV 87.8, MCH 28.0, MCHC 31.9, RDW 13.8, Plt Count 381, MPV 6.7 L, Neut % (Auto) 64.4, Lymph % (Auto) 23.8, [place] % (Auto) 6.6, Eos % (Auto) 4.7, Baso % (Auto) 0.4, Neut # (Auto) 6.7, Lymph # (Auto) 2.5, [place] # (Auto) 0.7, Eos # (Auto) 0.5 H, Baso # (Auto) 0.0, ESR 64 H 09/17/20 23:21: Sodium 134 L, Potassium 4.6, Chloride 104, Carbon Dioxide 23, Anion Gap 11.6, BUN 14, Creatinine 1.10, Estimated Creat Clear 92, Estimated GFR 66, Est GFR ( Amer) 79, Glucose 175 H, Calcium 8.9, Total Bilirubin 0.6, AST 32, ALT 38, Alkaline Phosphatase 113, Troponin I < 0.01, C-Reactive Protein 37.1 H, Total Protein 7.7, Albumin 4.1, Globulin 3.6 H, Albumin/Globulin Ratio 1.1, Procalcitonin 0.142 09/17/20 23:21: Lactate 1.2 09/17/20 23:42: Urine Color Yellow, Urine Appearance Clear, Urine pH 6.0, Ur Specific [place] 1.010, Urine Protein Negative, Urine Glucose (UA) Negative, Urine Ketones Negative, Urine Blood Negative, Urine Nitrate Negative, Urine Bilirubin Negative, Urine Urobilinogen 0.2, Ur Leukocyte Esterase Negative, Urine WBC Occasional, Ur Squamous Epith Cells 3-5, Urine Bacteria Trace 09/18/20 06:31: WBC 7.3 D, RBC 4.44 L, Hgb 12.8 L, Hct 38.6 L, MCV 86.9, MCH 28.7, MCHC 33.1, RDW 14.3, Plt Count 346, MPV 6.9 L, Neut % (Auto) 58.7, Lymph % (Auto) 34.2, [place] % (Auto) 2.3, Eos % (Auto) 4.3, Baso % (Auto) 0.5, Neut # (Auto) 4.3, Lymph # (Auto) 2.5, [place] # (Auto) 0.2, Eos # (Auto) 0.3, Baso # (Auto) 0.0 09/18/20 06:31: Sodium 136, Potassium 4.2, Chloride 105, Carbon Dioxide 25, Anion Gap 10.2, BUN 15, Creatinine 1.10, Estimated Creat Clear 106, Estimated GFR 66, Est GFR ( Amer) 79, Glucose 148 H, Calcium 8.5 Medical History: Reports:: Coronary Artery Disease, Cerebrovascular Accident, Gastroesophageal Reflux Disease(GERD), Hyperlipidemia, Hypertension, Myocardial Infarction Denies:: Cancer, Diabetes Mellitus Type 1, Diabetes Mellitus Type 2, Internal Pacemaker, MRSA, Seizures Assessment and Plan (1) Cellulitis of right leg without foot Status: Acute Category: Medical Code(s): L03.115 - Cellulitis of right lower limb (2) Chest pain Status: Acute Category: Medical Code(s): R07.9 - Chest pain, unspecified (3) HLD (hyperlipidemia) Status: Chronic Qualifiers: Hyperlipidemia type: mixed hyperlipidemia Qualified Code(s): E78.2 - Mixed hyperlipidemia Category: Medical Code(s): E78.5 - Hyperlipidemia, unspecified (4) HTN (hypertension) Status: Chronic Qualifiers: Hypertension type: essential hypertension Qualified Code(s): I10 - Essential (primary) hy
--- NOTE | 2020-09-18 09:09 | HMH.PHAVTE ---
[facility] Pharmacy VTE Monitoring - Patient Demographics Admission date: 09/17/20 Report Date: 09/18/20 Time: 09:09 Allergies/Adverse Reactions: Patient Allergies codeine Adverse Reaction (Verified 02/04/20 08:50) Nausea Height: 1.83 m Weight: 124.965 kg Patient Problems: Current Active Problems Cellulitis (Acute) Cellulitis of right leg without foot (Acute) Chest pain (Acute) History of stroke (Acute) HLD (hyperlipidemia) (Chronic) HTN (hypertension) (Chronic) History of myocardial infarct at age greater than 60 years (Chronic) - VTE Risk Labs: VTE Related Lab Results Hgb 12.8 g/dL (14.1-18.0) L 09/18/20 06:31 Hct 38.6 % (42.0-52.0) L 09/18/20 06:31 Plt Count 346 K/mm3 (142-424) 09/18/20 06:31 BUN 15 mg/dl (9-20) 09/18/20 06:31 Creatinine 1.10 mg/dl (0.66-1.25) 09/18/20 06:31 Estimated Creat Clear 106 mL/min (50-200) 09/18/20 06:31 Clinical Trial Participant: No - Prophylaxis VTE Prophylaxis Ordered?: Yes Types of VTE Prophylaxis: TEDS Knee High, Pharmacological Pharmacologic Type: Enoxaparin
--- NOTE | 2020-09-19 03:28 | PC.NURSE ---
A/O X4. Patient has hard time communicating, but can answer yes/no to questions asked during shift. pt has a bandage on his RLQ due to a lovenox shot the previous night that has continued to bleed all night. pt has not c/o of pain all shift. right knee is red and tender, sutures are in place. rested well all night.
[2020-09-19 04:00] VITALS: BP 190/86; PULSE 66; RESP 18; TEMP 36.4; O2SAT 95
[2020-09-19 05:04] VITALS: BMI 38.0
[2020-09-19 08:00] VITALS: BP 174/81; PULSE 76; RESP 18; TEMP 36.9; O2SAT 96
--- NOTE | 2020-09-19 08:00 | HMH.DCSUM ---
General - General Admission date:: 09/18/20 Discharge date: 09/19/20 HPI HPI: 75-year-old male presented to the emergency department with right leg pain. Leg pain was most intense at the knee joint but ascended up into the hip as well as down to the mid calf. Pain is constant. Patient did not get relief from pain at home with use of ice packs or compression. On September 15 patient had been in the emergency department with an injury to the right knee when a grinder operator struck the patient in the knee causing a laceration over the knee. Laceration was repaired at that ER visit. Patient has not had fevers. This morning pain may be slightly improved. In the ER patient underwent evaluation. He had a normal white blood cell count. CT scan did not reveal deeper infection. Patient was admitted on vancomycin. Patient also has complaints of a stabbing left pectoral pain that is now been present for 1 year. Patient saw cardiology in January 2020 where echocardiogram and Lexiscan Myoview were arranged but patient did not have these tests. Hospital Course Hospital Course: Patient was admitted and placed on IV vancomycin. During his brief hospital stay the mild erythema improved, swelling began to improve, and patient was able to ambulate with minimal pain. As patient's leg began to show signs of improvement and it was felt that there was a significant inflammatory response contributing to the swelling and level of pain patient was discharged home. Patient will complete a course of Bactrim. Patient is a history of coronary artery disease and complained of frequent left pectoral chest pain. Echocardiogram was performed which revealed normal ejection fraction without ventricular hypokinesis. Objective Vital signs: Temp Pulse Resp BP Pulse Ox 97.6 F 66 18 190/86 H 95 09/19/20 04:00 09/19/20 04:00 09/19/20 04:00 09/19/20 04:00 09/19/20 04:00 no acute distress - *Routine Respiratory Exam Present: CTA bilaterally - *Routine Cardiovascular Exam Present: RRR - *Routine Extremities Exam Comments: Patient has had significant improvement in erythema and swelling of the right leg from the thigh to the calf. While the leg remains larger than the left there is been at least 50% improvement in both size and redness of the extremity. Tenderness has also improved with most tender area now being around the knee. Sutures remain intact and without evidence of purulence DS: Diagnosis - Discharge Diagnosis (1) Cellulitis of right leg without foot Status: Acute (2) Chest pain Status: Acute (3) HLD (hyperlipidemia) Status: Chronic (4) HTN (hypertension) Status: Chronic (5) History of myocardial infarct at age greater than 60 years Status: Chronic (6) History of stroke Status: Acute (7) Sequelae, post-stroke Status: Acute (8) CVA, old, aphasia Status: Chronic Discharge Plan - Patient Discharge Instructions ACTIVITY: Continue current activity DIET: continue same diet Patient Instructions: DI for Cellulitis -- Adult, Cellulitis, DI for Chest Pain - Follow up Plan Follow up with: Rodrigo Flores MD [Primary Care Provider] - 09/23/20 Disposition: Home, Self-Care Condition at discharge:: Improving Home Medications: Home Medications Medication Instructions Recorded Confirmed Type Atorvastatin Calcium [Atorvastatin 40 mg PO HS 07/22/18 09/17/20 History 40mg Tab] Clopidogrel Bisulfate [Plavix 75mg 75 mg PO DAILY 07/22/18 09/17/20 History Tab] Gabapentin [Gabapentin 300mg Cap] 300 mg PO TID 07/22/18 09/17/20 History Metoprolol Tartrate [Lopressor 25 mg PO BID 07/22/18 09/17/20 History 25mg tablet] aspirin 81 mg tablet,delayed 81 mg PO DAILY 12/14/18 09/17/20 History release nitroglycerin 0.4 mg sublingual 0.4 mg SUBLINGUAL Q5-15M PRN 12/14/18 09/17/20 History tablet cephALEXin [cephALEXin 500mg 500 mg PO Q6H 09/17/20 09/17/20 History capsule*] L
--- NOTE | 2020-09-19 18:12 | PC.NURSE ---
Pt d/cd this shift with 3 scripts, Losartan/hctz, norco and bactrim ds. came back to hospital stating only one med had been gotten because the [facility] pharmacy stated the pain med order was canceled. This RN did make Dr. Flores aware after pharmacist stated the med would have to be resent electronically.This RN did also call in bactrim DS order.
== END 2020-09-19 15:30 | disposition home or self-care (01) ==
LOC: ER 22:25 → 2ND 09-18 02:18
PROVIDERS: Admitting Provider Internal Medicine Adolescent Medicine; Emergency Provider Emergency Medicine; PCP Family Medicine; Visit Provider Family Medicine
DX: L03.115 Cellulitis of right lower limb (principal); I69.320 Aphasia following cerebral infarction; R07.9 Chest pain, unspecified; I10 Essential (primary) hypertension; I25.10 Atherosclerotic heart disease of native coronary artery without angina pectoris; I25.2 Old myocardial infarction; K21.9 Gastro-esophageal reflux disease without esophagitis; Z95.5 Presence of coronary angioplasty implant and graft; Z87.891 Personal history of nicotine dependence; Z88.5 Allergy status to narcotic agent; E78.5 Hyperlipidemia, unspecified
CPT/HCPCS: 36415; 73502; 73701; 80048; 80053; 81001; 83605; 84145; 84484; 85025; 85651; 86140; 87040; 93306; 93971; 96365; 96367; 96372; 96375; 99284; G0378; J2405; J3370; Q9957; Q9967; U0003

== ENCOUNTER 2020-09-28 15:33 | Emergency (ER) | payer MEDICARE, SELFPAY ==
[2020-09-28 16:00] VITALS: BP 136/90; PULSE 76; RESP 16; TEMP 37; O2SAT 96; BMI 39.5
[2020-09-28 16:02] VITALS: BP 000/00; PULSE 0; RESP 0; TEMP -17.7; TEMP 0
== END 2020-09-28 16:03 | disposition home or self-care (01) ==
PROVIDERS: Emergency Provider Nurse Practitioner; PCP Family Medicine
DX: S81.811D Laceration without foreign body, right lower leg, subsequent encounter (principal)

== ENCOUNTER → 2021-08-10 15:07 | Outpatient (CLI) | payer MEDICARE, SELFPAY ==
--- NOTE | 2021-08-10 15:13 | XR_ITS ---
FINAL REPORT CLINICAL HISTORY: SOB COMPARISON: July 22, 2018 FINDINGS: Two views of the chest were obtained. There is cardiomegaly. There is mild pulmonary vascular congestion. The mediastinum is normal. There is a new 5 cm posterior right mid thorax mass versus mass like opacity. There is no pneumothorax. The bony thorax is intact. IMPRESSION: New 5 cm posterior right mid thorax mass versus mass like opacity. Recommend chest CT with contrast for further evaluation. Reviewed, Interpreted and Dictated by Vito Peoples III, MD Transcribed by Lisa Stoner Authenticated by Vito Peoples III, MD on 08/10/2021 04:28:26 PM [facility]
== END ==
PROVIDERS: PCP Family Medicine; Visit Provider Family Medicine
DX: R06.02 Shortness of breath (principal)
CPT/HCPCS: 71046

== ENCOUNTER → 2021-08-16 13:17 | Outpatient (CLI) | payer MEDICARE, SELFPAY ==
[2021-08-16 13:53] LABS: Blood Urea Nitrogen 26 mg/dl (9-20); Estimated Glomerular Filt Rate 27 ml/min (>60); GFR (African American) 32 ML/MIN (>60)
--- NOTE | 2021-08-16 14:10 | CT_ITS ---
FINAL REPORT TECHNIQUE: Axial imaging of the chest was obtained without contrast. Reformatted images were also obtained and reviewed.This study was performed with techniques to keep radiation doses as low as reasonably achievable, (ALARA). Individualized dose reduction technique using automated exposure control or adjustment of mA and/or kV according to the patient's size were employed. CLINICAL HISTORY: CHEST MASS FINDINGS: There is abnormal mediastinal adenopathy and left hilar adenopathy. A right paratracheal node lymph node is seen measuring up to 2.1 cm in greatest dimension. There are pre-vascular lymph nodes measuring up to 1.9 cm. Left perihilar adenopathy measures up to 2.2 cm. There is a dominant mass in the posterior right upper lobe measuring 5.3 x 3.4 cm. There is also a bilobed mass in the anterior left upper lobe measuring 3.0 x 1.9 cm on image number 37. There is no pleural or pericardial effusion. There is no pneumothorax. There is lipomatous hypertrophy of the intra-atrial septum. IMPRESSION: Moderate mediastinal and left hilar adenopathy. Bilateral pulmonary masses highly concerning for primary neoplasm or metastasis. Recommend PET-CT for further evaluation. Reviewed, Interpreted and Dictated by Devyn Calvert MD Transcribed by Shamika Shah Authenticated by Devyn Calvert MD on 08/16/2021 03:06:03 PM [facility]
== END ==
PROVIDERS: PCP Family Medicine; Visit Provider Family Medicine
DX: R06.02 Shortness of breath (principal); R22.2 Localized swelling, mass and lump, trunk
CPT/HCPCS: 36415; 71250; 82565; 84520

== ENCOUNTER → 2021-09-13 09:58 | Outpatient (CLI) | payer MEDICARE, SELFPAY | PROVIDERS: PCP Family Medicine; Visit Provider Family Medicine | DX: Z01.812 Encounter for preprocedural laboratory examination (principal); Z20.822 Contact with and (suspected) exposure to COVID-19 | CPT/HCPCS: C9803; U0003; U0005 ==

== ENCOUNTER 2021-11-14 21:33 | Emergency (ER) | payer MEDICARE, SELFPAY ==
[2021-11-14 22:28] VITALS: BP 00/00; PULSE 0; RESP 0; TEMP -17.7; TEMP 0
--- NOTE | 2021-11-14 22:30 | PC.NURSE ---
Patient came in c/o soa. During triage patient refused all vital signs and scans and lab work. Patient said he just wants to go home. Patient left without being seen. was here at daughters request but states that he feels well enough and doesn't want to be here or touched.
== END 2021-11-14 22:28 | disposition left against medical advice (07) ==
PROVIDERS: Emergency Provider Emergency Medicine; PCP Family Medicine
DX: Z53.21 Procedure and treatment not carried out due to patient leaving prior to being seen by health care provider (principal)

== ENCOUNTER → 2021-11-17 13:56 | Outpatient (CLI) | payer MEDICARE, SELFPAY ==
--- NOTE | 2021-11-17 | CA_ITS ---
APPROVED REPORT EXAM: Comprehensive 2D, Doppler, and color-flow Echocardiogram Violin Tutor: Ana Schmitz RT(R) Ht: 6 ft 0 in Wt: 268lbs BSA: 2.41 BP: 146/72 mmHg Indications: Dyspena, on O2, ex smoker, CP, HTN, hyperlipidemia, CAD, GERD, hx FL, hx CVA 2D Dimensions LVOT 2.02 cm (M/F) 1.5-2.5 M-Mode Dimensions RVDd 1.53 cm (0.9-2.6) LVDd 5.35 cm (3.5-5.7) LVDs 4.33 cm (3.5-5.7) IVSd 0.93 cm (0.6-1.1) PWd 0.98 cm (0.6-1.1) EF (Teich) 39.00% FS 19.10% EDV (Teich) 138.30 mL ESV (Teich) 84.40 mL LV Diastology LAT E' 7.90 (<10 cm/sec) Left Ventricle Technically very difficult and poor study, endocardial cells are very poorly visualized, if clinically indicated repeat study with Definity contrast is recommended. Left atrium is mildly enlarged, left ventricle is normal size mild concentric left ventricular hypertrophy, visually estimated ejection fraction is approximately 40%, there appears to be hypokinesis involving the mid to distal septum and apical wall. Diastolic parameters are inconclusive. Right Ventricle Right atrium and right ventricle are mildly enlarged with normal contractility. Aortic Valve Aortic valve is poorly visualized, however Doppler is not indicated for aortic stenosis aortic insufficiency. Mitral Valve Mitral valve leaflets are minimally thickened, there is mild mitral regurgitation. Tricuspid Valve Tricuspid valve is grossly normal, there is no significant tricuspid regurgitation noted. Pulmonic Valve Pulmonic valve is poorly visualized. Great Vessels Aortic root is normal size. Inferior vena cava is poorly visualized. Pericardium No significant pericardial effusion noted. Conclusion 1. Technically very difficult and poor study. Endocardial cells are very poorly visualized, repeat study with Definity contrast is recommended. 2. Probably estimated ejection fraction is 40% with segmental wall motion abnormality described above, diastolic parameters are inconclusive. 3. Mildly enlarged right ventricle with normal contractility. 4. No significant pericardial effusion noted. 5. Inferior vena cava is poorly visualized. Electronically signed by : Andre Dan MD 11/17/2021 19:21:10
--- NOTE | 2021-11-17 13:58 | CA_ITS ---
FINAL REPORT CLINICAL HISTORY: dyspnea FINDINGS: DUPLEX VENOUS SONOGRAPHY OF THE BILATERAL LOWER EXTREMITIES Multiple transverse and longitudinal scans were performed of the femoropopliteal deep venous systems, with augmentation and compression maneuvers. FINDINGS: Normal phasic flow was noted in the visualized deep venous systems. No intraluminal increased echogenicity is noted to suggest thrombus. There is normal compression and augmentation of the venous structures. No abnormal venous collaterals are seen. IMPRESSION: No evidence of deep venous thrombosis of the bilateral lower extremities. Reviewed, Interpreted and Dictated by Nighat Brice MD Transcribed by Shamika Shah Authenticated and [facility]
== END ==
PROVIDERS: PCP Family Medicine; Referring Provider Nurse Practitioner; Visit Provider Internal Medicine Critical Care Medicine
DX: E78.2 Mixed hyperlipidemia (principal); I10 Essential (primary) hypertension; I25.118 Atherosclerotic heart disease of native coronary artery with other forms of angina pectoris; I25.2 Old myocardial infarction; I48.91 Unspecified atrial fibrillation; I65.23 Occlusion and stenosis of bilateral carotid arteries; I69.320 Aphasia following cerebral infarction; K21.9 Gastro-esophageal reflux disease without esophagitis; R06.00 Dyspnea, unspecified; R06.01 Orthopnea; R06.02 Shortness of breath; R07.89 Other chest pain; Z95.5 Presence of coronary angioplasty implant and graft
CPT/HCPCS: 93306; 93970

== ENCOUNTER 2021-12-05 19:13 | Inpatient (IN) | payer MEDICARE, SELFPAY ==
[2021-12-05 19:20] VITALS: BMI 31.5
--- NOTE | 2021-12-05 19:21 | XR_ITS ---
PROCEDURE INFORMATION: Exam: XR Chest Exam date and time: 12/05/2021 7:37 PM Age: 76 years old Clinical indication: Shortness of breath; Additional info: SOA TECHNIQUE: Imaging protocol: Radiologic exam of the chest. Views: 1 view. COMPARISON: CT CHEST WO CON 08/16/2021 2:13 PM FINDINGS: Lungs: Known spiculated bilateral lung masses are not well visualized on this exam. Bilateral airspace and interstitial opacities, mainly in the mid to lower lung zones. Pleural spaces: Unremarkable. No pleural effusion. No pneumothorax. Heart/Mediastinum: Unremarkable. No cardiomegaly. Bones/joints: Unremarkable. IMPRESSION: 1. Bilateral lung opacities may represent pneumonia. 2. Known bilateral lung masses are not well visualized on this exam.
[2021-12-05 19:22] LABS: Coronavirus 19, PCR Not Detected (NotDetected); Influenza A, PCR Not Detected (NotDetected); Influenza B, PCR Not Detected (NotDetected)
[2021-12-05 19:23] LABS: ABG Base Excess -0.1 mmol/L (-2.4-2.3); ABG HCO3 23.4 mmhg (22.0-26.0); ABG Oxygen Saturation 95 % (90-100); ABG PCO2 32.2 mmhg (35.0-45.0); ABG PH 7.48 mmol/L (7.35-7.45); ABG PO2 70.9 mmhg (80-100); ABG TCO2 24.4 mmhg (23-27); Allen's Test Y; Oxygen 2 %; Source Right Radial
[2021-12-05 19:27] LABS: Basophils % 0.2 % (0.1-2.0); Eosinophils # 0.3 K/mm3 (0.0-0.4); Hematocrit 33.6 % (42.0-52.0); Hemoglobin 11.4 g/dL (14.1-18.0); Lymphocytes # 2.1 K/mm3 (0.7-4.5); Lymphocytes % 19.5 % (10-50); Mean Corpuscular HGB Conc 33.8 g/dL (31.8-35.4); Mean Corpuscular Volume 82.7 fl (80-94); Mean Platelet Volume 6.6 fl (7.4-10.4); Monocytes # 0.8 K/mm3 (0.1-1.0); Monocytes % 7.5 % (1.7-9.3); Neutrophils # 7.6 K/mm3 (1.8-7.8); Neutrophils % 69.8 % (37.0-80.0); Platelet Count 540 K/mm3 (142-424); Red Blood Count 4.06 M/mm3 (4.60-6.20); Red Cell Distribution Width 14.7 % (11.5-17.5); White Blood Count 10.9 K/mm3 (4.8-10.8)
--- NOTE | 2021-12-05 19:28 | ECG_ITS ---
APPROVED REPORT Exam: Resting ECG HR:118 bpm ECG Measurements Heart Rate 118 AXES QRSd 75 QRS -20 QT 298 T 66 QTc 368 Conclusion ATRIAL FIBRILLATION WITH RAPID VENTRICULAR RESPONSE LOW QRS VOLTAGE IN PRECORDIAL LEADS [QRS DEFLECTION < 1.0 mV IN CHEST LEADS] POSSIBLE RIGHT VENTRICULAR CONDUCTION DELAY [RSR (QR) IN V1/V2] POSSIBLE SEPTAL MYOCARDIAL INFARCTION , PROBABLY OLD [30 ms Q WAVE IN V1/V2] ABNORMAL RHYTHM ECG UNCONFIRMED REPORT Electronically signed by : Rodrigo Bond MD 12/06/2021 14:28:22
--- NOTE | 2021-12-05 19:28 | PC.NURSE ---
RAD at BS
[2021-12-05 19:32] LABS: Alanine Aminotransferase 26 U/L (12-78); Albumin Level 3.6 g/dl (3.5-5.0); Albumin/Globulin Ratio 0.8 (1.1-1.8); Alkaline Phosphatase 126 U/L (38-126); Anion Gap 11.7 mEq/L (5-15); Aspartate Amino Transferase 37 U/L (17-59); Bilirubin,Total 0.4 mg/dl (0.2-1.3); Blood Urea Nitrogen 21 mg/dl (9-20); Carbon Dioxide 29 mmol/L (22.0-30.0); Chloride 98 mmol/L (98-107); Creatinine Clearance Estimated 70 mL/min (50-200); Estimated Glomerular Filt Rate 54 ml/min (>60); GFR (African American) 65 ML/MIN (>60); Globulin 4.3 g/dL (1.3-3.2); Glucose 115 mg/dl (74-100); Magnesium 1.1 mg/dl (1.6-2.3); Potassium 4.7 mmoL/L (3.5-5.1); Sodium 134 mmol/L (136-145); Total Protein,Serum 7.9 g/dl (6.3-8.2)
[2021-12-05 19:38] VITALS: BP 161/80; PULSE 110; RESP 18; TEMP 36.6; O2SAT 98; BMI 32.7
[2021-12-05 19:44] LABS: NT Pro Brain Natriuretic Pep. 994 pg/mL (0-125)
[2021-12-05 20:00] LABS: Troponin I < 0.01 ng/ml (0.00-0.034)
--- NOTE | 2021-12-05 20:04 | PC.NURSE ---
s/w Respiratory to discuss abg results. pt states he can't breathe despite adequate o2 sat. RT recommends vapotherm
--- NOTE | 2021-12-05 20:16 | PC.NURSE ---
RT at BS
--- NOTE | 2021-12-05 20:34 | HMH.EDSOB ---
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 Atrial fibrillation Qualifiers: Atrial fibrillation type: unspecified chronic Qualified Code(s): I48.20 - Chronic atrial fibrillation, unspecified Lung cancer Qualifiers: Laterality: unspecified laterality Lung location: unspecified part of lung Qualified Code(s): C34.90 - Malignant neoplasm of unspecified part of unspecified bronchus or lung Disposition: Admitted As Inpatient Condition on Discharge: Serious - Critical Care Critical Care Time: No Attestation: On 12/05/21, the high probability of a clinically significant, sudden or life threatening deterioration of the following system(s) required my full and direct attention, intervention and personal management. The time I documented below is in addition to time spent performing reported procedures but includes the following listed in this critical care notation. Medical Decision Making - Medical Records Medical records reviewed: Yes: I reviewed the patient's medical records. - Omer Inquiry Pt receiving controlled substance: No Vital Signs: 12/05/21 19:38 12/05/21 21:36 12/05/21 22:06 Temperature 98 F Temperature Source Oral Pulse Rate 117 H 108 H Pulse Rate [Apical] 110 H Respiratory Rate 18 18 21 Blood Pressure 119/64 148/79 H Blood Pressure [Right Arm] 161/80 H Blood Pressure Mean [Right Arm] 107 Blood Pressure Source [Right Arm] Automatic Cuff Blood Pressure Position [Right Arm] Sitting 02 Sat by Pulse Oximetry 98 98 100 Oxygen Delivery Method Nasal Cannula Vapotherm Vapotherm Oxygen Flow Rate (LPM) 2 12/05/21 22:36 12/05/21 22:51 Temperature Temperature Source Pulse Rate 121 H 108 H Pulse Rate [Apical] Respiratory Rate 22 20 Blood Pressure 153/71 H 131/66 Blood Pressure [Right Arm] Blood Pressure Mean [Right Arm] Blood Pressure Source [Right Arm] Blood Pressure Position [Right Arm] 02 Sat by Pulse Oximetry 97 100 Oxygen Delivery Method Room Air Vapotherm Oxygen Flow Rate (LPM) - Lab Data Lab results reviewed: Yes: I reviewed the patient's lab results. Lab Results 12/05/21 19:14: SARS-CoV-2 (PCR) Not detected, Influenza A Untype (PCR) Not detected, Influenza Type B (PCR) Not detected 12/05/21 19:15: WBC 10.9 H, RBC 4.06 L, Hgb 11.4 L, Hct 33.6 L, MCV 82.7, MCH 28.0, MCHC 33.8, RDW 14.7, Plt Count 540 H, MPV 6.6 L, Neut % (Auto) 69.8, Lymph % (Auto) 19.5, Mckinley % (Auto) 7.5, Eos % (Auto) 3.0, Baso % (Auto) 0.2, Neut # (Auto) 7.6, Lymph # (Auto) 2.1, Mckinley # (Auto) 0.8, Eos # (Auto) 0.3, Baso # (Auto) 0.0 12/05/21 19:15: Sodium 134 L, Potassium 4.7, Chloride 98, Carbon Dioxide 29, Anion Gap 11.7, BUN 21 H, Creatinine 1.30 H, Estimated Creat Clear 70, Estimated GFR 54 L, Est GFR ( Amer) 65, Glucose 115 H, Calcium 9.0, Magnesium 1.1 L, Total Bilirubin 0.4, AST 37, ALT 26, Alkaline Phosphatase 126, Troponin I < 0.01, NT-Pro-B Natriuret Pep 994 H, Total Protein 7.9, Albumin 3.6, Globulin 4.3 H, Albumin/Globulin Ratio 0.8 L 12/05/21 19:21: Specimen Source Right radial, O2 % 2, ABG pH 7.48 H, ABG pCO2 32.2 L, ABG pO2 70.9 L, ABG HCO3 23.4, ABG Total CO2 24.4, ABG O2 Saturation 95, ABG Base Excess -0.1, Alden Test Y 12/05/21 22:34: Troponin I < 0.01 12/05/21 22:34: Lactate 1.3 Result diagrams: 12/05/21 19:15 12/05/21 19:15 Orders (Tests/Meds): ED MEDICATIONS Generic Name Dose Route Start Last Admin Trade Name Ozielq PRN Reason Stop Dose Admin Ceftriaxone Sodium 1 gm/ 50 mls @ 100 mls/hr 12/05/21 22:30 12/05/21 22:33 Sodium Chloride IV 12/19/21 22:29 100 mls/hr Q24H MIESHA Administration Azithromycin 500 mg/ Sodium 250 mls @ 250 mls/hr 12/05/21 22:30 12/05/21 22:53 Chloride IV 12/19/21 22:29 250 mls/hr Q24H MIESHA Administration Sodium Chloride 3 ml 12/05/21 19:35 Sodium Chloride 3% 15ml Neb IH 01/04/22 19:34 ONCE PRN INDUCE SPUTUM COLLECTION Keshaiu
--- NOTE | 2021-12-05 21:23 | PC.NURSE ---
Family and patient refused ct contrast. They believe that we can do whatever tests we need without the contrast .
--- NOTE | 2021-12-05 21:26 | PC.NURSE ---
let radiology know pt is refusing CTA
--- NOTE | 2021-12-05 21:33 | PC.NURSE ---
Family requested nurse to bedside. Upon assessment pt was breathing 30 times per minute. Patient was responsive, alert and oriented x 4, oxygen saturation was 99%. Family requested patients 5mg hydrocodone that he takes at home for anxiety. Patient was given this medication and also given 1mg of ativan for his anxiety. Family states that the patient never has any anxiety or anxiety attacks. Will continue to monitor.
[2021-12-05 21:36] VITALS: BP 119/64; PULSE 117; RESP 18; O2SAT 98
--- NOTE | 2021-12-05 21:45 | PC.NURSE ---
Rechecked patient. Respirations are even and labored. Pt respirations are 18 per minute. Pt is resting comfortably. When asked if he feels like hes breathing any better and patient indicates that he feels much better.
[2021-12-05 22:06] VITALS: BP 148/79; PULSE 108; RESP 21; O2SAT 100
[2021-12-05 22:36] VITALS: BP 153/71; PULSE 121; RESP 22; O2SAT 97
--- NOTE | 2021-12-05 22:39 | PC.NURSE ---
Pt given drink per request
[2021-12-05 22:51] VITALS: BP 131/66; PULSE 108; RESP 20; O2SAT 100
[2021-12-05 22:51] LABS: Lactic Acid 1.3 mmol/L (0.7-2.1)
--- NOTE | 2021-12-05 23:00 | PC.NURSE ---
Felix has provided patient and his with chips, drinks and soup.
[2021-12-05 23:15] LABS: Troponin I < 0.01 ng/ml (0.00-0.034)
--- NOTE | 2021-12-05 23:19 | PC.NURSE ---
speaking with Dr. Sams
--- NOTE | 2021-12-05 23:29 | PC.NURSE ---
Notified house of pt admission and need for bed assignment.
[2021-12-05 23:38] VITALS: BMI 33.2
--- NOTE | 2021-12-05 23:56 | PC.NURSE ---
Pt up to use urinal. Pt back in bed and resting. Light turned off per request.
[2021-12-06] VITALS (30 sets, daily range): BP systolic 125–161; BP diastolic 50–97; PULSE 72–120; RESP 18–40; TEMP 36.4–37.1; O2SAT 92–99
--- NOTE | 2021-12-06 00:46 | PC.NURSE ---
Attempted to call report, nurse refused at this time. House notified.
--- NOTE | 2021-12-06 01:26 | PC.NURSE ---
PT ARRIVED VIA STRETCHER TO THE FLOOR AT THIS TIME
[2021-12-06 01:28] LABS: Troponin I < 0.01 ng/ml (0.00-0.034)
--- NOTE | 2021-12-06 05:00 | PC.NURSE ---
pt admitted this shift, pt is alert and oriented x4; at bedside; lung sounds with bilateral expiratory and inspiratory wheezing and rhochi, vapotherm at 16/50 with o2 sats at 99%; pt remains up in chair as he has a hard time breathing in bed, bilateral lower extremity edema 2+; no other issues noted at this time, telemetry reveals atrial fib with rapid rate at times 100-130.
[2021-12-06 06:17] LABS: Basophils # 0.1 K/mm3 (0-0.2); Basophils % 0.5 % (0.1-2.0); Eosinophils # 0.3 K/mm3 (0.0-0.4); Eosinophils % 2.7 % (0.1-12.0); Hematocrit 34.2 % (42.0-52.0); Hemoglobin 10.7 g/dL (14.1-18.0); Lymphocytes # 1.6 K/mm3 (0.7-4.5); Lymphocytes % 16.7 % (10-50); Mean Corpuscular HGB Conc 31.1 g/dL (31.8-35.4); Mean Corpuscular Volume 86.6 fl (80-94); Mean Platelet Volume 7.7 fl (7.4-10.4); Monocytes # 0.8 K/mm3 (0.1-1.0); Monocytes % 7.6 % (1.7-9.3); Neutrophils # 7.2 K/mm3 (1.8-7.8); Neutrophils % 72.5 % (37.0-80.0); Platelet Count 543 K/mm3 (142-424); Red Blood Count 3.95 M/mm3 (4.60-6.20); Red Cell Distribution Width 15.6 % (11.5-17.5); White Blood Count 9.9 K/mm3 (4.8-10.8)
[2021-12-06 06:25] LABS: Anion Gap 11.9 mEq/L (5-15); Blood Urea Nitrogen 20 mg/dl (9-20); Calcium 8.8 mg/dl (8.4-10.2); Carbon Dioxide 27 mmol/L (22.0-30.0); Chloride 100 mmol/L (98-107); Creatinine Clearance Estimated 77 mL/min (50-200); Estimated Glomerular Filt Rate 50 ml/min (>60); GFR (African American) 60 ML/MIN (>60); Glucose 145 mg/dl (74-100); Magnesium 1.1 mg/dl (1.6-2.3); Potassium 4.9 mmoL/L (3.5-5.1); Sodium 134 mmol/L (136-145)
--- NOTE | 2021-12-06 07:13 | HMH.PHAVTE ---
[facility] Pharmacy VTE Monitoring - Patient Demographics Admission date: 12/05/21 Report Date: 12/06/21 Time: 07:13 Allergies/Adverse Reactions: Patient Allergies codeine Adverse Reaction (Verified 11/24/21 11:21) Nausea contrast dye Adverse Reaction (Uncoded 12/05/21 20:19) Other Height: 1.88 m Weight: 117.48 kg Patient Problems: Current Active Problems Lung cancer (Acute) Acute exacerbation of chronic obstructive airways disease (Acute) Congestive heart failure (Acute) CAD (coronary artery disease) (Acute) CAP (community acquired pneumonia) (Acute) Severe sepsis with acute organ dysfunction (Acute) Atrial fibrillation (Acute) 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
--- NOTE | 2021-12-06 08:00 | CA_ITS ---
APPROVED REPORT EXAM: Comprehensive 2D, Doppler, and color-flow Echocardiogram Panel Maker: Keely Marquez CRT Ht: 6 ft 2 in Wt: 268lbs BSA: 2.46 BP: 117/55 mmHg Indications: Abnormal ECG, CVA/TIA, Atrial Fibrillation, CAD, lung CA, abn stress, definity given very limited images pt up in chair, very tender to touch. Echo Enhancing Agent Indication: Endocardial border delineation Agent(s) / Amount(s) Used: Definity 2 cc Conclusion 1. Limited echocardiogram was performed with Definity contrast to evaluate left ventricular systolic function. Despite contrast endocardial surfaces are very poorly visualized, likely preserved left ventricular systolic function with no regional wall motion abnormality. Estimated ejection fraction is probably 55%. 2. No significant pericardial effusion noted. Electronically signed by : Andre Dan MD 12/06/2021 18:56:56
--- NOTE | 2021-12-06 08:37 | HMH.HP ---
*Admission Date: 12/05/21 *Chief complaint: Shortness of air and difficulty breathing *History of present illness: 76-year-old male with multiple medical problems including CHF with systolic dysfunction with ejection fraction 40%, abnormal stress test with planned cardiac catheterization that was scheduled as an outpatient for today, December 06, as well as metastatic lung cancer, currently on immunotherapy per Dr. Caldwell in [place], as well as chronic expressive aphasia from stroke disease who presented to the emergency department with increasing dyspnea, chest pain and some anxiety. In the ER he was found to have multilobar pneumonia, found to have evidence of CHF exacerbation and admitted to hospital. This morning he states he feels a little bit better but continues to be dyspneic, feels like he has a lot of pressure in his chest. His daughter reports that he had a significant episode of dyspnea and chest pain in the emergency department that was helped with Ativan. Apparently plan is for cardiac catheterization today-or at least it was planned before his pneumonia was diagnosed-to see if his chest pain could be helped so that he could better tolerate immunotherapy for his lung cancer. [facility] History I have reviewed the patient's past medical history: Yes Medical History: Reports:: Atrial Fibrillation, Cancer, Congestive Heart Failure, Coronary Artery Disease, Cerebrovascular Accident, Gastroesophageal Reflux Disease(GERD), Hyperlipidemia, Hypertension, Myocardial Infarction Denies:: Diabetes Mellitus Type 1, Diabetes Mellitus Type 2, Internal Pacemaker, MRSA, Seizures *Have you ever received a pneumonia vaccine?: Yes *Have you received a flu vaccine this season?: Yes Laterality Cases: Right: Carpal Tunnel Release, Bilateral: Other Other Surgeries: Yes: Cancer Surgery, Cardiac Catheterization, Cholecystectomy, Coronary Stent, Other. No: Pacemaker Amputation: No Fractures: Yes (finger) - *Social History Last grade of school completed: High school graduate Smoking Status: Former smoker Tobacco Type: cigarettes #Yrs smoked (if former smoker): 47 Smoking End Date: 2015 Alcohol Intake: never Substance Use Type: denies use *Occupational Status:: disabled Housing: house Household Members: spouse *Travel in the last 8 weeks: None Family Hx:: Cancer Review of Systems - Review of Systems Review of systems:: pertinent systems reviewed and negative unless documented below - *Neurologic Denies headache(s), Denies seizure-like activity Meds Home Medications Medication Instructions Recorded Confirmed Type Atorvastatin Calcium [Lipitor 40mg 40 mg PO HS 07/22/18 12/06/21 History Tab] Metoprolol Tartrate [Lopressor 25 mg PO BID 07/22/18 12/06/21 History 25mg tablet] aspirin 81 mg tablet,delayed 81 mg PO DAILY 12/14/18 12/06/21 History release nitroglycerin 0.4 mg sublingual 0.4 mg SUBLINGUAL Q5-15M PRN 12/14/18 12/05/21 History tablet Omeprazole [Omeprazole 20mg 20 mg PO DAILY 09/18/20 12/06/21 History Capsule] Hydrocod/Acet 5/325 mg [[place] 1 tab PO Q6HP PRN #20 tab 09/19/20 12/06/21 Rx 5/325mg tablet] gabapentin 300 mg capsule 300 mg PO BID cap 11/17/21 12/06/21 History ondansetron HCl 8 mg tablet 8 mg PO DAILY PRN tab 11/17/21 12/06/21 History levalbuterol HCl 0.63 mg/3 mL 0.63 mg IH ONCE PRN ml 11/24/21 12/06/21 History solution for nebulization levalbuterol tartrate 45 2 puff IH ONCE gm 11/24/21 12/06/21 History mcg/actuation aerosol inhaler Losartan/Hydrochlorothiazide 1 each PO DAILY 12/05/21 12/06/21 History [Losartan-Hctz 100-25 mg Tab] Rivaroxaban [Xarelto] 15 mg PO DAILY 12/05/21 12/05/21 History Budesonide/Glycopyr/Formoterol 160 mcg IH BID 12/06/21 12/06/21 History [Breztri Aerosphere Inhaler] Allergies Allergy/AdvReac Type Severity Reaction Status Date / Time codeine AdvReac Nausea Verified 11/24/21 11:21 Iodinated Contrast Media AdvReac Unknown Verified 12/06/21 07:4
--- NOTE | 2021-12-06 09:47 | IR_ITS ---
APPROVED REPORT Patient Location: Inpatient PROCEDURES Left heart catheterization Left ventriculogram Selective coronary angiogram Drug-eluting stent deployment to the proximal ramus intermedius INDICATION Congestive heart failure, Acute coronary syndrome/unstable angina, Abnormal stress test Informed consent was obtained prior to the procedure. COMPLICATIONS NONE Estimated Blood Loss: LESS THAN 10 ML TECHNIQUE One percent lidocaine used to anesthetize the right anterior aspect of the wrist. The right radial artery was accessed via the Seldinger technique. A 6 Cymraes sheath was placed in the right radial artery. 2.5 mg of verapamil, 800 mcg of nitroglycerin, 1mg Lidocaine and 5000 U Heparin were given through the arterial sheath. The papa catheter was also used to perform left heart catheterization, left ventriculogram and selective coronary angiogram. At the end the diagnostic angiogram therapeutic heparin was administered giving a therapeutic ACT and a wire was placed into the ramus intermedius followed by 2 mm x 15 mm resolute [place] stent deployed at 20 jewell reducing the stenosis. There was a proximal stenosis therefore a 2.25 x 12 mm resolute Shola stent was placed proximal to the for stent yet still overlapping the first stent and deployed at 22 jewell. Excellent angiographic results were obtained with NIKOLAI-3 flow being present before and after the procedure. Anesthesia the apparatus was removed the sheath was removed and hemostasis was achieved and TR banding patient was transferred to the postop putting in stable addition ANGIOGRAPHIC RESULTS The left main artery Normal The left anterior descending artery As proximal 10 to 20% stenosis with a mid vessel 30% stenosis. Moderate sized 2.25 mm first diagonal artery has an ostial 80 to 90% stenosis. A larger second diagonal artery is widely patent. The circumflex artery Gives rise to a moderate sized bifurcating obtuse marginal artery which has a proximal 90% concentric stenosis. The circumflex artery itself is nondominant patent with mild atheromatous nonflow limiting plaque The right coronary artery Is a large dominant vessel and has mild 10% diffuse luminal irregularities with 10 to 20% luminal irregularities in the posterior descending artery and a larger bifurcating posterior lateral branch The ZELAYA ventriculogram reveals Hyperdynamic 70% The left ventricular end-diastolic pressure 35 mmHg IMPRESSION Severe disease in the ramus intermedius with successful stenting reducing lesion to 0% with 2 drug-eluting stents Hyperdynamic ventricle with elevated LVEDP both consistent with diastolic dysfunction likely from hypertensive heart disease Persistent severe stenosis in the first diagonal artery PLAN 1. Dual antiplatelet therapy 2. I would like to treat the diagonal artery medically as stenting this would require bifurcating stenting of the proximal LAD into the first diagonal artery. This is unlikely to be producing significant angina 3. A lot of patient's symptoms are likely coming from diastolic dysfunction with severely elevated LVEDP. This should be aggressively treated which will help palliate patient's symptoms 4. Cardiac rehabilitation 5. Avoidance of tobacco products 6. Risk factor modification Electronically signed by : Brannon Dang MD 12/06/2021 13:10:49
--- NOTE | 2021-12-06 09:55 | HMH.CNCARD ---
History of Present Illness Consult date: 12/06/21 Requesting physician: Michael Sams Consult reason: congestive heart failure, known to you, shortness of breath Chief complaint: SOA History of present illness: This is a 76-year-old white gentleman who presented to the emergency department with complaints of shortness of breath. His daughter reports that he had been having worsening shortness of breath since having his echocardiogram completed on November 17, 2021. His daughter reports that over the weekend his shortness of breath became profoundly worse. She states that this was severe even at rest. She states that he is unable to lie flat. He and his daughter both deny any chest pain or pressure. The patient was recently evaluated in cardiology clinic. He was found to have an abnormal echocardiogram with an ejection fraction of 40% concerning for ischemic cardiomyopathy. The patient has metastatic lung cancer as well and is currently on immunotherapy with Dr. Caldwell in [place]. At first the patient and his family had declined proceeding with further evaluation of his cardiomyopathy and wanted to finish treatment for his cancer. However his oncologist stopped his treatment until his cardiac status was further evaluated so the patient was set up for left cardiac catheterization on an outpatient basis which was scheduled for today. The patient came into the hospital over the weekend because of his worsened symptoms. His daughter also reports having slightly blood-tinged sputum at times since starting the Xarelto for atrial fibrillation. He has bilateral lower extremity edema associated with his shortness of breath. He denies fever, chills, nausea, vomiting or diarrhea. He does have orthopnea with his shortness of breath as well. The patient does have a history of a CVA with chronic expressive aphasia so most of his history is obtained from his daughter. In the emergency department the patient was also found to have multilobular pneumonia with evidence of CHF exacerbation. His BNP is over 900. [facility] History I have reviewed the patient's past medical history: Yes Medical History: Reports:: Atrial Fibrillation, Cancer, Congestive Heart Failure, Coronary Artery Disease, Cerebrovascular Accident, Gastroesophageal Reflux Disease(GERD), Hyperlipidemia, Hypertension, Myocardial Infarction Denies:: Diabetes Mellitus Type 1, Diabetes Mellitus Type 2, Internal Pacemaker, MRSA, Seizures *Have you ever received a pneumonia vaccine?: Yes *Have you received a flu vaccine this season?: Yes Laterality Cases: Right: Carpal Tunnel Release, Bilateral: Other Other Surgeries: Yes: Cancer Surgery, Cardiac Catheterization, Cholecystectomy, Coronary Stent, Other. No: Pacemaker Amputation: No Fractures: Yes (finger) - *Social History Last grade of school completed: High school graduate Smoking Status: Former smoker Tobacco Type: cigarettes #Yrs smoked (if former smoker): 47 Smoking End Date: 2015 Alcohol Intake: never Substance Use Type: denies use *Occupational Status:: disabled Housing: house Household Members: spouse *Travel in the last 8 weeks: None Family Hx:: Cancer Meds Home Medications Medication Instructions Recorded Confirmed Type Atorvastatin Calcium [Lipitor 40mg 40 mg PO HS 07/22/18 12/06/21 History Tab] Metoprolol Tartrate [Lopressor 25 mg PO BID 07/22/18 12/06/21 History 25mg tablet] aspirin 81 mg tablet,delayed 81 mg PO DAILY 12/14/18 12/06/21 History release Omeprazole [Omeprazole 20mg 20 mg PO DAILY 09/18/20 12/06/21 History Capsule] Hydrocod/Acet 5/325 mg [[place] 1 tab PO Q6HP PRN #20 tab 09/19/20 12/06/21 Rx 5/325mg tablet] gabapentin 300 mg capsule 300 mg PO BID cap 11/17/21 12/06/21 History ondansetron HCl 8 mg tablet 8 mg PO BIDP PRN tab 11/17/21 12/06/21 History levalbuterol HCl 0.63 mg/3 mL 0.63 mg IH Q6HP PRN ml 11/24/21 12/06/21 History solution for nebulization levalbuterol tartrate 45 2 puff I
--- NOTE | 2021-12-06 09:57 | HMH.PHAINT ---
MEDICATION RECONCILIATION COMPLETED ON PATIENT USING EXTERNAL FILL HISTORY FROM PHARMACY AND LIST FROM CARDIOLOGY OFFICE. -DARIN CUMMINGSD
--- NOTE | 2021-12-06 11:37 | HMH.OTEV ---
OT Inpatient Evaluation Rehab OT IP Evaluation Start: 12/06/21 08:41 Freq: ONCE Status: Complete Protocol: Document 12/06/21 11:30 JAYNEDARREN (Rec: 12/06/21 11:37 SPEEDY [id number]) Rehab OT IP Assessment Subjective History 76-year-old male with multiple medical problems including CHF with systolic dysfunction with ejection fraction 40%, abnormal stress test with planned cardiac catheterization that was scheduled as an outpatient for today, December 06, as well as metastatic lung cancer, currently on immunotherapy per Dr. Caldwell in [place], as well as chronic expressive aphasia from stroke disease who presented to the emergency department with increasing dyspnea, chest pain and some anxiety. In the ER he was found to have multilobar pneumonia, found to have evidence of CHF exacerbation and admitted to hospital. This morning he states he feels a little bit better but continues to be dyspneic, feels like he has a lot of pressure in his chest. His daughter reports that he had a significant episode of dyspnea and chest pain in the emergency department that was helped with Ativan. Apparently plan is for cardiac catheterization today-or at least it was planned before his pneumonia was diagnosed-to see if his chest pain could be helped so that he could better tolerate immunotherapy for his lung cancer. [facility] History I have reviewed the patient's past medical history: Yes Medical History: Reports:: Atrial Fibrillation, Cancer, Congestive Heart Failure,
--- NOTE | 2021-12-06 11:56 | HMH.PTEV ---
Physical Therapy Evaluation Rehab PT IP Evaluation Start: 12/06/21 08:41 Freq: ONCE Status: Active Protocol: Document 12/06/21 11:39 PWINGA (Rec: 12/06/21 11:56 PWINGA [id number]) Subjective/History History History This is the initial IP PT eval for Willie Calzada, a 76 y/o male. Pt has h/o CHF with systolic disfunction, metastatic lung cancer, and chronic expressive aphasia from prior stroke. Presented to ED w/ increasing dyspnea and chest p!. Currently has planned cardiac catheterization for afternoon of today, 12/06/21. Written by Mikayla Brooks, SPT Subjective Subjective Pt was in recliner with vapotherm limiting him from ambulating during session. Due to pt's aphasia, subjective hx and complaints could not be taken. Pt could only answer Y /N questions. Pt currently lives with daughter and son-in -law in one-story house. Pt's daughter reported that prior to admission, pt used cane to ambulate and was moving around well. Rehab PT IP Eval Objective Appearance Patient Behavior Appropriate,Cooperative Patient Orientation Situation Difficulty following instructions none Speech Pattern Aphasic Balance Ability to Arise Able, uses arms to help Sitting Balance Steady, safe Standing Balance Narrow stance w/o support Dynamic Sitting Balance Ability Good Transfers Chair Transfer Ability Independent,Supervision/Stand by Sit to Stand Chair Transfer Ability Supervision/Stand by,Contact Guard/Hand Hold Rehab PT IP prob,goals,plan Problems Date of Evaluation: 12/06/21 PT IP Problems Transfers,Gait,Self care, Safety Rehab Potential Rehab Potential Fair Equipment Needs Assistive Devices Straight Cane Plan PT Intervention Plan Transfers,Gait,Self care, Safety,Therapeutic Exercise PT Plan Frequency BID Duration LOS Discharge Goals Sit to Sta
[2021-12-06 13:32] LABS: CATHL Activated Clotting Time 328 SEC (74-125)
--- NOTE | 2021-12-06 15:12 | PC.NURSE ---
rounded on patient. patient has returned from heart cath. family is at bedside. they said currently they had no concerns or questions in regards to care or plan. patient currently on vapotherm. did voice that patient was attempting to get out of bed and was slightly confused. bed alarm was on. no needs at this time. encouraged them to ring out with any needs or concerns.
--- NOTE | 2021-12-06 15:55 | PC.NURSE ---
Addendum entered by Paradise Cunha RN 12/06/21 17:58: PT IS SITTING UP IN THE RECLINER AT THIS TIME. Original Note: PT IS RESTING IN BED WITH FAMILY AT BEDSIDE. PT HAS BEEN VERY RESTLESS SINCE ARRIVING BACK TO THE FLOOR FROM [employer]. MEDICATED PER MAR FOR SOA AND AGITATION. LUNG SOUNDS HAVE SCATTERED WHEEZES/RHONCHI. RESPIRATIONS 24-30. AFIB ON TELEMETRY. O2 SATURATION HAS MAINTAINED 95-98% ON VAPOTHERM 16 L 50% FIO2. FAMILY REQUESTED FOR PT TO HAVE NORCO REORDERED. NOTIFIED (NORCO 5/325 Q6H PRN WAS ORDERED). WILL CONTINUE TO MONITOR.
--- NOTE | 2021-12-06 16:14 | CARE MANAGER ---
Patient's requested that attending physician be changed to Dr. Rubin. Dr. Rubin agreed to accept the patient and Dr. Bond was notified of change. Patient's signed the physician change form and it was placed on chart.
[2021-12-06 22:56] LABS: ABG Base Excess -0.3 mmol/L (-2.4-2.3); ABG HCO3 24.3 mmhg (22.0-26.0); ABG Oxygen Saturation 95 % (90-100); ABG PCO2 38.6 mmhg (35.0-45.0); ABG PH 7.42 mmol/L (7.35-7.45); ABG PO2 76.3 mmhg (80-100); ABG TCO2 25.4 mmhg (23-27); Oxygen 50 %
[2021-12-06 22:57] LABS: Allen's Test Patient Unable; Source Left Radial
--- NOTE | 2021-12-06 23:42 | PC.NURSE ---
Addendum entered by Yashira Chanel RN 12/07/21 05:07: Patient more alert this am following simple commends. Vapotherm still in place sats above 90%. Wheezes and Rhonchi heard. and daughter at bedside. Bed alarm on. Addendum entered by Yashira Chanel RN 12/07/21 02:43: Daughter now at bedside updated daughter on condition. Daughter states she understands all concerns addressed. Addendum entered by Yashira Chanel RN 12/07/21 02:10: Called in by stating patient waking up trying to get up out of bed still not responding to trying to be redirected. Patient incontinent of urine 4 staff at bedside to change patient who is being combative swinging and pushing at staff. Bed change and brief applied to patient. Patient trying to pull off vapotherm and IV's mitts are in place. Administered Haldol 1mg per Caryn orders to help calm the patient for his safety. Educated at bedside about delirium, pneumonia, and safety precautions. Staff stayed in room till patient settled down. Bed alarm on for safety. Original Note: Patient bed alarm went off went in room to find him trying to get out of the bed. Patient more confused then earlier. Patient not calming down or responding to nor staff. Paged Caryn who orders an ABG. ABG essentially unremarkable. Caryn adds another dose of 1mg Ativan on top of prn gave before being paged. Patient very combative trying to get out of bed swinging at staff. 4 staff present to keep patient in bed. Patient starting to calm down after second dose of Ativan mitts applied to patient r/t patient pulling at iv's and vapotherm. Bed alarm on for patient safety.
[2021-12-07] VITALS (13 sets, daily range): BP systolic 109–135; BP diastolic 61–76; PULSE 71–95; RESP 16–21; TEMP 36.4–37.1; O2SAT 94–98; BMI 33.2
[2021-12-07 07:08] LABS: Basophils % 0.2 % (0.1-2.0); Hematocrit 34.1 % (42.0-52.0); Hemoglobin 10.5 g/dL (14.1-18.0); Lymphocytes # 1.1 K/mm3 (0.7-4.5); Mean Corpuscular HGB Conc 30.7 g/dL (31.8-35.4); Mean Corpuscular Hemoglobin 27.4 pg (27.0-31.2); Mean Corpuscular Volume 89.3 fl (80-94); Mean Platelet Volume 7.4 fl (7.4-10.4); Monocytes # 0.5 K/mm3 (0.1-1.0); Monocytes % 4.9 % (1.7-9.3); Neutrophils % 83.7 % (37.0-80.0); Platelet Count 537 K/mm3 (142-424); Red Blood Count 3.82 M/mm3 (4.60-6.20); Red Cell Distribution Width 15.5 % (11.5-17.5); White Blood Count 9.6 K/mm3 (4.8-10.8)
[2021-12-07 07:18] LABS: Chloride 97 mmol/L (98-107); Potassium 4.1 mmoL/L (3.5-5.1); Sodium 133 mmol/L (136-145)
[2021-12-07 07:21] LABS: Anion Gap 10.1 mEq/L (5-15); Blood Urea Nitrogen 28 mg/dl (9-20); Calcium 8.9 mg/dl (8.4-10.2); Carbon Dioxide 30 mmol/L (22.0-30.0); Chol/HDL Ratio 2.8 (1-3.5); Cholesterol 92 mg/dl (140-200); Creatinine Clearance Estimated 72 mL/min (50-200); Estimated Glomerular Filt Rate 46 ml/min (>60); GFR (African American) 55 ML/MIN (>60); Glucose 199 mg/dl (74-100); HDL Cholesterol 33 mg/dl (40-60); Triglycerides 46 mg/dl (30-150); VLDL Cholesterol 9 mg/dL (0-40)
--- NOTE | 2021-12-07 08:24 | XR_ITS ---
FINAL REPORT CLINICAL HISTORY: f/u pneumonia COMPARISON: December 05, 2021 FINDINGS: A single portable view of the chest was obtained. The heart size enlarged. There is pulmonary vascular congestion. The mediastinum is within normal limits. There are persistent but partially improved pulmonary opacities consistent with improved pneumonia or edema. The bony thorax is intact. IMPRESSION: Persistent but partially improved pulmonary opacities consistent with improved pneumonia or edema. Reviewed, Interpreted and Dictated by Vito Peoples III, MD Transcribed by Cady Billings Authenticated and [facility]
--- NOTE | 2021-12-07 08:25 | HMH.ACPN2 ---
<Sweetie Martin - Last Filed: 12/07/21 08:25> Internal Medicine - PN: Subj *Date: 12/07/21 *Time: 08:25 Interval history: Daughter stayed with patient most of the night and stated he had a very restless night. He was confused and became somewhat combative. He had some restraints placed. She assisted him up to the bedside this morning for breakfast and he has been doing well since. Ativan did not seem to help him but the Haldol did. He did not know his daughter's name last night or this AM. Patient indicates he is not short of breath and has no chest pain. Exam Vital signs and Labs for Last 24 Hours: Temp Pulse Resp BP Pulse Ox 97.6 F 74 19 135/70 94 L 12/07/21 05:09 12/07/21 06:13 12/07/21 05:09 12/07/21 05:09 12/07/21 06:13 Laboratory Results - last 24 hr 12/06/21 12:50: Activated Clotting Time 328 H* 12/06/21 22:55: Specimen Source Left radial, O2 % 50, ABG pH 7.42, ABG pCO2 38.6, ABG pO2 76.3 L, ABG HCO3 24.3, ABG Total CO2 25.4, ABG O2 Saturation 95, ABG Base Excess -0.3, Alden Test Patient unable 12/07/21 06:37: WBC 9.6, RBC 3.82 L, Hgb 10.5 L, Hct 34.1 L, MCV 89.3, MCH 27.4, MCHC 30.7 L, RDW 15.5, Plt Count 537 H, MPV 7.4, Neut % (Auto) 83.7 H, Lymph % (Auto) 11.0, [place] % (Auto) 4.9, Eos % (Auto) 0.0 L, Baso % (Auto) 0.2, Neut # (Auto) 8.0 H, Lymph # (Auto) 1.1, [place] # (Auto) 0.5, Eos # (Auto) 0.0, Baso # (Auto) 0.0 12/07/21 06:37: Sodium 133 L, Potassium 4.1, Chloride 97 L, Carbon Dioxide 30, Anion Gap 10.1, BUN 28 H D, Creatinine 1.50 H, Estimated Creat Clear 72, Estimated GFR 46 L, Est GFR ( Amer) 55 L, Glucose 199 H, Calcium 8.9, Triglycerides 46, Cholesterol 92 L, VLDL Cholesterol 9, HDL Cholesterol 33 L, Cholesterol/HDL Ratio 2.8 I & O for Last 24 hours: Intake & Output 12/04/21 12/05/21 12/06/21 12/07/21 11:59 11:59 11:59 11:59 Intake Total 372 / 372 120 / 120 Output Total 875 / 875 2150 / 2150 Balance -503 / -503 -2029 / Weight 259 lb Microbiology Reports for the Last 24 Hours: Microbiology 12/05/21 21:37 Sputum - Expectorated Sputum Gram Stain - Final 12/05/21 21:37 Sputum - Expectorated Sputum Sputum Culture - Preliminary - Constitutional no acute distress (Sitting on the bedside eating his breakfast and seems to be enjoying) - *Routine Respiratory Exam Present: wheezes (Scattered throughout posteriorly), crackles (In bases bilaterally) - *Routine Cardiovascular Exam Present: RRR - *Routine Abdominal Exam Present: normoactive bowel sounds. Absent: tenderness - *Routine Extremities Exam Present: edema. Absent: calf tenderness (Bilaterally) - *Routine Neurological Exam Present: alert Assessment and Plan (1) Cardiomyopathy Status: Acute Qualifiers: Cardiomyopathy type: unspecified Qualified Code(s): I42.9 - Cardiomyopathy, unspecified Category: Medical Code(s): I42.9 - Cardiomyopathy, unspecified (2) Acute systolic (congestive) heart failure Status: Acute Category: Medical Code(s): I50.21 - Acute systolic (congestive) heart failure (3) Edema Status: Acute Category: Medical Code(s): R60.9 - Edema, unspecified (4) Shortness of breath Status: Acute Category: Medical Code(s): R06.02 - Shortness of breath (5) CAD (coronary artery disease) Status: Acute Category: Medical Code(s): I25.10 - Atherosclerotic heart disease of tel[place] coronary artery without angina pectoris (6) Atrial fibrillation Status: Acute Qualifiers: Atrial fibrillation type: unspecified chronic Qualified Code(s): I48.20 - Chronic atrial fibrillation, unspecified Category: Medical Code(s): I48.91 - Unspecified atrial fibrillation (7) Acute exacerbation of chronic obstructive airways disease Status: Acute Category: Medical Code(s): J44.1 - Chronic obstructive pulmonary disease with (acute) exacerbation (8) CAP (community acquired pneumonia) Status: Acute Category: Medical Code(s): J18.9 - Pn
--- NOTE | 2021-12-07 09:40 | HMH.PNCARD ---
Subjective Date: 12/07/21 Time: 09:00 Principal diagnosis: SOA, CAD Interval history: This is a 76-year-old white gentleman who presented to the emergency department complaints of shortness of breath. The patient underwent left cardiac catheterization yesterday and had 2 stents placed to the ramus artery. He still had disease to a first diagonal artery which medical management was recommended at that time. The patient has severely elevated LVEDP at 35 mmHg. Echocardiogram shows an ejection fraction of 55% yesterday. The patient was combative overnight last night. He was also confused. The patient was treated with Ativan without improvement in his symptoms and then was subsequently given Haldol which did improve his symptoms. This morning the patient is a very pleasant. He does not seem to be as short of breath this morning as he did yesterday but the patient states that he still feels short of breath. He just got up to walk to the bathroom. He states that he is still having a lot of this of breath now. He does not think that this is any better than it was yesterday although he appears much better and his daughter also states that he appears much better from a shortness of breath standpoint today. He denies any chest pain or pressure. He denies any fever, chills, nausea, vomiting, diarrhea. He is still having some associated orthopnea with his shortness of breath. The patient does have a history of CVA with chronic expressive aphasia. Exam Vital signs and Labs for Last 24 Hours: Temp Pulse Resp BP Pulse Ox 97.9 F 90 17 131/76 94 L 12/07/21 08:00 12/07/21 08:00 12/07/21 08:00 12/07/21 08:00 12/07/21 08:00 Laboratory Results - last 24 hr 12/06/21 12:50: Activated Clotting Time 328 H* 12/06/21 22:55: Specimen Source Left radial, O2 % 50, ABG pH 7.42, ABG pCO2 38.6, ABG pO2 76.3 L, ABG HCO3 24.3, ABG Total CO2 25.4, ABG O2 Saturation 95, ABG Base Excess -0.3, [place] Test Patient unable 12/07/21 06:37: WBC 9.6, RBC 3.82 L, Hgb 10.5 L, Hct 34.1 L, MCV 89.3, MCH 27.4, MCHC 30.7 L, RDW 15.5, Plt Count 537 H, MPV 7.4, Neut % (Auto) 83.7 H, Lymph % (Auto) 11.0, [place] % (Auto) 4.9, Eos % (Auto) 0.0 L, Baso % (Auto) 0.2, Neut # (Auto) 8.0 H, Lymph # (Auto) 1.1, [place] # (Auto) 0.5, Eos # (Auto) 0.0, Baso # (Auto) 0.0 12/07/21 06:37: Sodium 133 L, Potassium 4.1, Chloride 97 L, Carbon Dioxide 30, Anion Gap 10.1, BUN 28 H D, Creatinine 1.50 H, Estimated Creat Clear 72, Estimated GFR 46 L, Est GFR ( Amer) 55 L, Glucose 199 H, Calcium 8.9, Triglycerides 46, Cholesterol 92 L, VLDL Cholesterol 9, HDL Cholesterol 33 L, Cholesterol/HDL Ratio 2.8 I & O for Last 24 hours: Intake & Output 12/04/21 12/05/21 12/06/21 12/07/21 23:59 23:59 23:59 23:59 Intake Total 492 / 492 Output Total 3025 / 3025 Balance -2533 / -2533 Weight 259 lb Microbiology Reports for the Last 24 Hours: Microbiology 12/05/21 21:37 Sputum - Expectorated Sputum Gram Stain - Final 12/05/21 21:37 Sputum - Expectorated Sputum Sputum Culture - Preliminary Narrative: Telemetry strip is sinus rhythm with a rate of 91 bpm. Echocardiogram shows: 1. Limited echocardiogram was performed with Definity contrast to evaluate left ventricular systolic function. Despite contrast endocardial surfaces are very poorly visualized, likely preserved left ventricular systolic function with no regional wall motion abnormality. Estimated ejection fraction is probably 55%. 2. No significant pericardial effusion noted. Left cardiac catheterization shows: The left main artery Normal The left anterior descending artery As proximal 10 to 20% stenosis with a mid vessel 30% stenosis. Moderate sized 2.25 mm first diagonal artery has an ostial 80 to 90% stenosis. A larger second diagonal artery is widely patent. The circumflex artery Gives rise to a moderate sized bifurcating obtuse marginal artery which has a proximal 90% concentric stenosis. The
--- NOTE | 2021-12-07 09:43 | PC.NURSE ---
Rounded on pt, cleaned and straightened room. Family at bedside, no needs voiced at this time.
--- NOTE | 2021-12-07 15:12 | PC.NURSE ---
rounded on patient who is resting in bed. appears to have significantly less shortness of breath than previous day. family is sitting at bedside and states they feel he is tons better . no questions or concerns at this time. off vapotherm. no needs currently. encouraged them to let us know if they have any concerns or needs.
--- NOTE | 2021-12-07 18:24 | PC.NURSE ---
PT HAS DONE WELL THIS SHIFT. PT UNABLE TO COMMUNICATE EFFECTIVELY DUE TO PREVIOUS CVA, HE IS A&O AND IN A PLEASANT MOOD. HAS BEEN AT BEDSIDE TODAY. NO PAIN REPORTED. PT HAS RESTED T/O SHIFT. DAUGHTER HAD CONCERNS OVER MEDICATIONS THIS MORNING, EDUCATION GIVEN AND KIP PLASCENCIA CAME TO BEDSIDE TO CLARIFY NEW MEDS AND ANSWER QUESTIONS. FAMILY IS AT BEDSIDE AND STATED THEY WOULD ASSIST HIM TO THE BR, BED ALARM HAS BEEN TURNING OFF. BILAT RHONCHI, O2 ON 4L NC TOLERATING WELL 3L, TOLERATING WELL AT 98%. STILL AT BEDSIDE, CB W/I REACH. NO QUESTIONS OR CONCERNS AT THIS TIME.
[2021-12-08] VITALS: PULSE 74
[2021-12-08 03:52] VITALS: BP 119/78; PULSE 78; RESP 21; TEMP 36.7; O2SAT 97
[2021-12-08 04:00] VITALS: PULSE 79
[2021-12-08 05:06] VITALS: BMI 32.5
--- NOTE | 2021-12-08 05:19 | PC.NURSE ---
Patient had a pleasant night. Patient has been A&o x4 throughout shift. Patient able to ambulate to restroom with stand by assist. Patient has tolerated 3l nc with sats above 90%. Patient wears 2l at baseline. Some wheezing and crackles still noted Bilateral. No concerns at this time.
[2021-12-08 06:07] VITALS: PULSE 87; PULSE 88; O2SAT 98
--- NOTE | 2021-12-08 07:46 | HMH.ACPN2 ---
<Sweetie Martin - Last Filed: 12/08/21 07:46> Internal Medicine - PN: Subj *Date: 12/08/21 *Time: 07:46 Interval history: stayed with patient throughout the night. She states he had a much better night last night. He did sleep. He has known his family. He ate well yesterday. He ambulates to the bathroom with very little assistance. notes that his breathing is much improved since the procedure. Patient states he is doing well today. He has just walked to the bathroom and back and did well. Bowels did move. He is short of breath with exertion. He denies any chest pain. Exam Vital signs and Labs for Last 24 Hours: Temp Pulse Resp BP Pulse Ox 98.0 F 87 21 119/78 98 12/08/21 03:52 12/08/21 06:07 12/08/21 03:52 12/08/21 03:52 12/08/21 06:07 I & O for Last 24 hours: Intake & Output 12/05/21 12/06/21 12/07/21 12/08/21 11:59 11:59 11:59 11:59 Intake Total 372 / 372 480 / 480 770 / 770 Output Total 875 / 875 2450 / 2450 1525 / 1525 Balance -503 / -503 -1970 / -1970 -755 / -755 Weight 259 lb 254 lb 3 oz Microbiology Reports for the Last 24 Hours: Microbiology 12/05/21 22:34 Blood Blood Culture - Preliminary NO GROWTH AFTER 48 HOURS 12/05/21 22:34 Blood Blood Culture - Preliminary NO GROWTH AFTER 48 HOURS 12/05/21 21:37 Sputum - Expectorated Sputum Gram Stain - Final 12/05/21 21:37 Sputum - Expectorated Sputum Sputum Culture - Preliminary - Constitutional no acute distress Comments: Sitting on bedside and appears comfortable. - *Routine Respiratory Exam Present: rhonchi, wheezes (Bilateral wheezing and rhonchi which totally clear with coughing) - *Routine Cardiovascular Exam Present: RRR - *Routine Abdominal Exam Present: normoactive bowel sounds, obese. Absent: tenderness - *Routine Extremities Exam Absent: edema, calf tenderness - *Routine Neurological Exam Present: alert, oriented X3 Speech is more clear today. Assessment and Plan (1) Acute systolic (congestive) heart failure Status: Acute Category: Medical Code(s): I50.21 - Acute systolic (congestive) heart failure (2) Cardiomyopathy Status: Acute Qualifiers: Cardiomyopathy type: unspecified Qualified Code(s): I42.9 - Cardiomyopathy, unspecified Category: Medical Code(s): I42.9 - Cardiomyopathy, unspecified (3) Shortness of breath Status: Acute Category: Medical Code(s): R06.02 - Shortness of breath (4) CAD (coronary artery disease) Status: Acute Category: Medical Code(s): I25.10 - Atherosclerotic heart disease of [place] coronary artery without angina pectoris (5) Atrial fibrillation Status: Acute Qualifiers: Atrial fibrillation type: unspecified chronic Qualified Code(s): I48.20 - Chronic atrial fibrillation, unspecified Category: Medical Code(s): I48.91 - Unspecified atrial fibrillation (6) Acute exacerbation of chronic obstructive airways disease Status: Acute Category: Medical Code(s): J44.1 - Chronic obstructive pulmonary disease with (acute) exacerbation (7) CAP (community acquired pneumonia) Status: Acute Category: Medical Code(s): J18.9 - Pneumonia, unspecified organism (8) Lung cancer Status: Acute Qualifiers: Laterality: unspecified laterality Lung location: unspecified part of lung Qualified Code(s): C34.90 - Malignant neoplasm of unspecified part of unspecified bronchus or lung Category: Medical Code(s): C34.90 - Malignant neoplasm of unspecified part of unspecified bronchus or lung (9) Sequelae, post-stroke Status: Acute Category: Medical Code(s): I69.30 - Unspecified sequelae of cerebral infarction (10) Expressive aphasia Status: Acute Category: Medical Code(s): R47.01 - Aphasia (11) Dyspnea Status: Chronic Qualifiers: Dyspnea type: shortness of breath Qualified Code(s): R06.02 - Shortness of
[2021-12-08 08:00] VITALS: BP 116/83; PULSE 103; PULSE 93; RESP 18; TEMP 36.6; O2SAT 92
[2021-12-08 08:53] LABS: Chloride 96 mmol/L (98-107); Sodium 136 mmol/L (136-145)
[2021-12-08 08:54] LABS: Potassium 3.6 mmoL/L (3.5-5.1)
[2021-12-08 08:56] LABS: Blood Urea Nitrogen 41 mg/dl (9-20); Creatinine Clearance Estimated 56 mL/min (50-200); Estimated Glomerular Filt Rate 35 ml/min (>60); GFR (African American) 42 ML/MIN (>60)
[2021-12-08 08:57] LABS: Anion Gap 12.6 mEq/L (5-15); Calcium 8.7 mg/dl (8.4-10.2); Carbon Dioxide 31 mmol/L (22.0-30.0); Glucose 231 mg/dl (74-100)
--- NOTE | 2021-12-08 09:21 | HMH.PNCARD ---
Subjective Date: 12/08/21 Time: 08:30 Principal diagnosis: SOA, CAD Interval history: This is a 76-year-old white gentleman who presents to the emergency department complaints of shortness of breath and underwent left cardiac catheterization had 2 stents placed to the ramus artery. The patient still has disease to the first diagonal artery for which medical management was recommended. He had a severely elevated LVEDP at 35 mmHg. The patient has been diuresed with IV Lasix. He has had a bump in his creatinine at 1.9 suggesting that the patient is now prerenal and has had sufficient diuresis. We will convert him over to oral Lasix today. This morning he states that shortness of breath is much improved. He still has a little shortness of breath with exertion but this is much better. His edema has resolved. He denies any chest pain or pressure. He denies any fever, chills, nausea, vomiting, diarrhea. Exam Vital signs and Labs for Last 24 Hours: Temp Pulse Resp BP Pulse Ox 97.8 F 93 H 18 116/83 92 L 12/08/21 08:00 12/08/21 08:00 12/08/21 08:00 12/08/21 08:00 12/08/21 08:00 Laboratory Results - last 24 hr 12/08/21 08:40: Sodium 136, Potassium 3.6, Chloride 96 L, Carbon Dioxide 31 H, Anion Gap 12.6, BUN 41 H D, Creatinine 1.90 H D, Estimated Creat Clear 56, Estimated GFR 35 L, Est GFR ( Amer) 42 L D, Glucose 231 H, Calcium 8.7 I & O for Last 24 hours: Intake & Output 12/05/21 12/06/21 12/07/21 12/08/21 23:59 23:59 23:59 23:59 Intake Total 492 / 492 1080 / 1080 290 / 290 Output Total 3025 / 3025 1600 / 1600 225 / 225 Balance -2533 / -2533 -520 / -520 65 / 65 Weight 259 lb 258 lb 15.985 oz 254 lb 3 oz Microbiology Reports for the Last 24 Hours: Microbiology 12/05/21 22:34 Blood Blood Culture - Preliminary NO GROWTH AFTER 48 HOURS 12/05/21 22:34 Blood Blood Culture - Preliminary NO GROWTH AFTER 48 HOURS 12/05/21 21:37 Sputum - Expectorated Sputum Gram Stain - Final 12/05/21 21:37 Sputum - Expectorated Sputum Sputum Culture - Preliminary Narrative: Telemetry strip is sinus rhythm. - Constitutional no acute distress, obese - *Routine HEENT Exam Head: Present: normocephalic, atraumatic Eye: Present: EOMI, PERRL ENT: Present: mucous membranes moist - *Routine Neck Exam Present: supple, full ROM, normal carotid upstroke. Absent: JVD, carotid bruit, lymphadenopathy - *Routine Respiratory Exam Present: CTA bilaterally - *Routine Cardiovascular Exam Present: RRR, Normal S1, Normal S2. Absent: murmur - *Routine Abdominal Exam Present: soft, normoactive bowel sounds. Absent: tenderness, distended - *Routine Extremities Exam Present: full ROM, pulses intact, normal capillary refill. Absent: cyanosis, clubbing, edema - *Routine Skin Exam Present: intact, warm. Absent: erythema, rash - *Routine Neurological Exam Present: alert, oriented X3, CN II-XII intact. Absent: sensory deficit, motor deficit Progress Note: A&P (1) Acute systolic (congestive) heart failure Status: Acute (2) Cardiomyopathy Status: Acute (3) Shortness of breath Status: Acute (4) CAD (coronary artery disease) Status: Acute (5) Atrial fibrillation Status: Acute (6) Acute exacerbation of chronic obstructive airways disease Status: Acute (7) CAP (community acquired pneumonia) Status: Acute (8) Lung cancer Status: Acute (9) Sequelae, post-stroke Status: Acute (10) Expressive aphasia Status: Acute (11) Dyspnea Status: Chronic (12) GERD (gastroesophageal reflux disease) Status: Chronic (13) HLD (hyperlipidemia) Status: Chronic (14) HTN (hypertension) Status: Chronic Assessment and Plan for All Diagnoses:: Plan: 1. Patient was admitted hospital due to shortness of breath and having an acute exacerbation of systolic congestive heart failure with a BNP over 900. The p
--- NOTE | 2021-12-08 10:03 | SW/DCPLANNER ---
Addendum entered by Herlinda Waggoner 12/08/21 10:27: has stated that home health services will start tomorrow 12/09/21. Original Note: Patient information has been faxed to [facility]. I will follow up with from [facility] once patient information/order is reviewed. Patient is expected to discharge home later today.
--- NOTE | 2021-12-08 11:04 | HMH.PHACLD ---
Willie Calzada has received discharge medication counseling on the following medications: LOSARTAN, METOPROLOL, LIPITOR, ASPIRIN, LASIX, XARELTO, PLAVIX
[2021-12-08 11:17] LABS: Direct LDL Cholesterol 35 mg/dL (100-129)
--- NOTE | 2021-12-08 13:37 | HMH.ACPN2 ---
Internal Medicine - PN: Subj *Date: 12/08/21 *Time: 13:37 Exam Vital signs and Labs for Last 24 Hours: Temp Pulse Resp BP Pulse Ox 97.8 F 93 H 18 116/83 92 L 12/08/21 08:00 12/08/21 08:00 12/08/21 08:00 12/08/21 08:00 12/08/21 08:00 Laboratory Results - last 24 hr 12/07/21 06:37: LDL Cholesterol Direct 35 L 12/08/21 08:40: Sodium 136, Potassium 3.6, Chloride 96 L, Carbon Dioxide 31 H, Anion Gap 12.6, BUN 41 H D, Creatinine 1.90 H D, Estimated Creat Clear 56, Estimated GFR 35 L, Est GFR ( Amer) 42 L D, Glucose 231 H, Calcium 8.7 I & O for Last 24 hours: Intake & Output 12/06/21 12/07/21 12/08/21 12/09/21 11:59 11:59 11:59 11:59 Intake Total 372 / 372 480 / 480 1010 / 1010 Output Total 875 / 875 2450 / 2450 1525 / 1525 Balance -503 / -503 -1970 / -1970 -515 / -515 Weight 259 lb 254 lb 3 oz Microbiology Reports for the Last 24 Hours: Microbiology 12/05/21 21:37 Sputum - Expectorated Sputum Gram Stain - Final 12/05/21 21:37 Sputum - Expectorated Sputum Sputum Culture - Final Normal Respiratory [place] 12/05/21 22:34 Blood Blood Culture - Preliminary NO GROWTH AFTER 48 HOURS 12/05/21 22:34 Blood Blood Culture - Preliminary NO GROWTH AFTER 48 HOURS Assessment and Plan (1) Acute systolic (congestive) heart failure Status: Acute Category: Medical Code(s): I50.21 - Acute systolic (congestive) heart failure (2) Cardiomyopathy Status: Acute Qualifiers: Cardiomyopathy type: unspecified Qualified Code(s): I42.9 - Cardiomyopathy, unspecified Category: Medical Code(s): I42.9 - Cardiomyopathy, unspecified (3) Shortness of breath Status: Acute Category: Medical Code(s): R06.02 - Shortness of breath (4) CAD (coronary artery disease) Status: Acute Category: Medical Code(s): I25.10 - Atherosclerotic heart disease of [place] coronary artery without angina pectoris (5) Atrial fibrillation Status: Acute Qualifiers: Atrial fibrillation type: unspecified chronic Qualified Code(s): I48.20 - Chronic atrial fibrillation, unspecified Category: Medical Code(s): I48.91 - Unspecified atrial fibrillation (6) Acute exacerbation of chronic obstructive airways disease Status: Acute Category: Medical Code(s): J44.1 - Chronic obstructive pulmonary disease with (acute) exacerbation (7) CAP (community acquired pneumonia) Status: Acute Category: Medical Code(s): J18.9 - Pneumonia, unspecified organism (8) Lung cancer Status: Acute Qualifiers: Laterality: unspecified laterality Lung location: unspecified part of lung Qualified Code(s): C34.90 - Malignant neoplasm of unspecified part of unspecified bronchus or lung Category: Medical Code(s): C34.90 - Malignant neoplasm of unspecified part of unspecified bronchus or lung (9) Sequelae, post-stroke Status: Acute Category: Medical Code(s): I69.30 - Unspecified sequelae of cerebral infarction (10) Expressive aphasia Status: Acute Category: Medical Code(s): R47.01 - Aphasia (11) Dyspnea Status: Chronic Qualifiers: Dyspnea type: shortness of breath Qualified Code(s): R06.02 - Shortness of breath; R06.00 - Dyspnea, unspecified; R06.01 - Orthopnea Category: Medical Code(s): R06.00 - Dyspnea, unspecified (12) GERD (gastroesophageal reflux disease) Status: Chronic Qualifiers: Esophagitis presence: without esophagitis Qualified Code(s): K21.9 - Gastro-esophageal reflux disease without esophagitis Category: Medical Code(s): K21.9 - Gastro-esophageal reflux disease without esophagitis (13) HLD (hyperlipidemia) Status: Chronic Qualifiers: Hyperlipidemia type: mixed hyperlipidemia Qualified Code(s): E78.2 - Mixed hyperlipidemia Category: Medical Code(s): E78.5 - Hyperlipidemia, unspecified (14) HTN (hypertension) Status:
--- NOTE | 2021-12-08 13:45 | HMH.DCSUM ---
General - General Admission date:: 12/06/21 <Dmitri Rubin - 12/14/21 21:30> 12/06/21 <Courtney Do - 12/08/21 13:55> Discharge date: 12/08/21 <Courtney Do - 12/08/21 13:55> HPI HPI: 76-year-old male with multiple medical problems including CHF with systolic dysfunction with ejection fraction 40%, abnormal stress test with planned cardiac catheterization that was scheduled as an outpatient for today, December 06, as well as metastatic lung cancer, currently on immunotherapy per Dr. Caldwell in [place], as well as chronic expressive aphasia from stroke disease who presented to the emergency department with increasing dyspnea, chest pain and some anxiety. In the ER he was found to have multilobar pneumonia, found to have evidence of CHF exacerbation and admitted to hospital. This morning he states he feels a little bit better but continues to be dyspneic, feels like he has a lot of pressure in his chest. His daughter reports that he had a significant episode of dyspnea and chest pain in the emergency department that was helped with Ativan. Apparently plan is for cardiac catheterization today-or at least it was planned before his pneumonia was diagnosed-to see if his chest pain could be helped so that he could better tolerate immunotherapy for his lung cancer. <Courtney Do - 12/08/21 13:55> Hospital Course Hospital Course: The patient was started on IV antibiotics for community-acquired pneumonia. Cardiology was consulted. His preliminary echo looked the same as his previous echo. He was started on Xopenex nebs and morphine for chest pain and air hunger issues. He was seen by cardiology who felt he had an acute exacerbation of systolic congestive heart failure. He was set up for a heart cath and was given 80 mg of Lasix for diuresis. His heart cath showed severe disease in the ramus intermedius with successful stenting, and a hyperdynamic ventricle with elevated LVEDP consistent with diastolic dysfunction. He also had persistent severe stenosis of the first diagonal artery. Cardiology recommended dual antiplatelet therapy and to treat the diagonal artery medically. They also wanted aggressive treatment for his diastolic dysfunction. They recommended Lasix 80 mg IV twice daily, stop HCTZ, and continue Plavix and aspirin for DAPT. They also planned to restart his Xarelto the next day. He had a repeat chest x-ray on 12/07/2021 which showed persistent but partially improved pulmonary opacities consistent with improved pneumonia versus edema. He did become confused and combative the night after his heart cath and had to have restraints placed. Ativan helped, but Haldol did not. He denied any chest pain but did continue with some shortness of breath. It was felt he was having sundowning symptoms and he was more alert by the next morning. By 12/08/2021 he had had a better night and was able to rest. He was able to ambulate with very little assistance and his breathing had improved. He had been weaned to 3 L per nasal cannula and continued to diurese. It was felt he could be discharged home on oral Lasix and will follow up with both cardiology and his PCP. <Courtney Do - 12/08/21 13:55> Objective Vital signs: Temp Pulse Resp BP Pulse Ox 97.8 F 93 H 18 116/83 92 L 12/08/21 08:00 12/08/21 08:00 12/08/21 08:00 12/08/21 08:00 12/08/21 08:00 <Dmitri Rubin - 12/14/21 21:30> Temp Pulse Resp BP Pulse Ox 97.8 F 93 H 18 116/83 92 L 12/08/21 08:00 12/08/21 08:00 12/08/21 08:00 12/08/21 08:00 12/08/21 08:00 <Courtney Do - 12/08/21 13:55> Narrative: - Constitutional no acute distress Comments: Sitting on bedside and appears comfortable. - *Routine Respiratory Exam Present: rhonchi, wheezes (Bilateral wheezing and rhonchi which totally clear with coughing) - *Routine Cardiovascular Exam Present: RRR - *Routine Abdominal Exam Present: normoactive bowel s
--- NOTE | 2021-12-09 11:16 | CARE MANAGER ---
Called and spoke with Mrs. Calzada, who states that Willie is doing well. Prescribed medication has been picked up from pharmacy. Confirmed that she is aware of scheduled f/u appointments, and plans for him to attend. She states that he has no known needs at this time.
== END 2021-12-08 11:36 | disposition home health service (06) | DRG 981 ==
LOC: ER 19:47 → 2ND 12-06 00:21
PROVIDERS: Emergency Medicine; Internal Medicine; Nurse Practitioner Family; Admitting Provider Internal Medicine Adolescent Medicine; Emergency Provider Emergency Medicine; PCP Family Medicine; Visit Provider Family Medicine
PROC: 027035Z Dilation of Coronary Artery, One Artery with Two Drug-eluting Intraluminal Devices, Percutaneous Approach (ICD-10-PCS; principal; 2021-12-06 08:45)
DX: J18.9 Pneumonia, unspecified organism (principal); I50.21 Acute systolic (congestive) heart failure; I13.0 Hypertensive heart and chronic kidney disease with heart failure and stage 1 through stage 4 chronic kidney disease, or unspecified chronic kidney disease; C34.90 Malignant neoplasm of unspecified part of unspecified bronchus or lung; I25.110 Atherosclerotic heart disease of native coronary artery with unstable angina pectoris; I48.20 Chronic atrial fibrillation, unspecified; J44.1 Chronic obstructive pulmonary disease with (acute) exacerbation; J44.0 Chronic obstructive pulmonary disease with (acute) lower respiratory infection; R47.01 Aphasia; C79.9 Secondary malignant neoplasm of unspecified site; I42.9 Cardiomyopathy, unspecified; I69.364 Other paralytic syndrome following cerebral infarction affecting left non-dominant side; K21.9 Gastro-esophageal reflux disease without esophagitis; E78.5 Hyperlipidemia, unspecified; I25.2 Old myocardial infarction; Z95.5 Presence of coronary angioplasty implant and graft; I48.0 Paroxysmal atrial fibrillation; N18.9 Chronic kidney disease, unspecified
CPT/HCPCS: 36415; 71045; 80048; 80053; 80061; 82803; 83605; 83735; 83880; 84484; 85025; 85347; 87040; 87070; 87205; 92928; 93005; 93308; 93458; 94640; 94760; 94761; 97116; 97161; 97165; 97530; 99152; 99153; 99285; C1725; C1769; C1876; C9600; C9803; J0456; J0696; J1644; Q9957; Q9967; U0003; U0005